=== PATIENT | female | born 1955 | race Caucasian/White ===

== ENCOUNTER 2023-04-17 06:57 | Day surgery (SDC) | payer MEDICARE, OTHER, SELFPAY ==
[2023-04-12 12:50] VITALS: BMI 32.3
[2023-04-17] VITALS (13 sets, daily range): BP systolic 104–134; BP diastolic 61–94; BMI 32.3
--- NOTE | 2023-04-17 12:37 | ITS.CL.CATH ---
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
Cardiac Catheterization
Procedure Report:
CARDIAC CATHETERIZATION REPORT
Date of Procedure: 04/17/2023
Referring: Noe Tran MD
Indication: Mitral regurgitation
HEMODYNAMIC DATA
AO: 117/64
LV: 117/17
PCWP: 19
PA: 40/20-of note, there are V waves in the PA trace
RV: 40/16
RA: 14
Oximetry: Ao 94%, PA 74%, cardiac output 6.0, cardiac index 2.9
LEFT VENTRICULOGRAPHY: Ventricular wall motion is normal. An ejection fraction could not be calculated due to ventricular ectopy. There is significant mitral regurgitation; however, the degree of mitral regurgitation cannot be quantitated due to
the ventricular ectopy. The left atrium appears significantly enlarged.
CORONARY ANGIOGRAPHY
Dominance: Right
Left Main: Normal
LAD: Normal
Circumflex: Normal
RCA: Trivial luminal irregularities
Closure Device: None-the procedure was performed via the right radial artery and right femoral vein. The Keyur's test was normal prior to the procedure.
Radiation dose (mGy): 337
DAP (cm2.Gy): 30.4
Fluoroscopy time: 4.6 minutes
CONCLUSIONS:
1. Elevated filling pressures with mild pulmonary hypertension
2. Overall normal left ventricular function-an EF could not be calculated due to ventricular ectopy
3. Mitral regurgitation cannot be quantified due to ventricular ectopy
4. No significant CAD
RECOMMENDATIONS: Patient will have outpatient cardiothoracic surgical consultation for consideration of corrective mitral valve surgery
Copy to: Noe Tran MD, More Wright MD, Allen Mcfarland MD
Boni Cardona MD, [facility], [facility]
== END 2023-04-17 15:00 | disposition home or self-care (01) ==
LOC: CATH 06:57
PROVIDERS: ATTENDING PHYSICIAN Internal Medicine Cardiovascular Disease; FAMILY PHYSICIAN Family Medicine
DX: I34.0 Nonrheumatic mitral (valve) insufficiency (principal); I27.20 Pulmonary hypertension, unspecified; I10 Essential (primary) hypertension; E78.5 Hyperlipidemia, unspecified; I48.0 Paroxysmal atrial fibrillation; Z86.73 Personal history of transient ischemic attack (TIA), and cerebral infarction without residual deficits; K21.9 Gastro-esophageal reflux disease without esophagitis; E66.9 Obesity, unspecified; Z68.32 Body mass index [BMI] 32.0-32.9, adult; Z87.891 Personal history of nicotine dependence; Z79.01 Long term (current) use of anticoagulants
CPT/HCPCS: C1894; 93312; 93320; 93325; 93460; Q9967

== ENCOUNTER → 2023-05-16 14:43 | Outpatient (REF) | payer MEDICARE, OTHER, SELFPAY | LOC: RAD 14:43 | PROVIDERS: ATTENDING PHYSICIAN Thoracic Surgery (Cardiothoracic Vascular Surgery); FAMILY PHYSICIAN Family Medicine | DX: I34.0 Nonrheumatic mitral (valve) insufficiency (principal); Z01.818 Encounter for other preprocedural examination | CPT/HCPCS: 71275; 74174; Q9967 ==

== ENCOUNTER 2023-05-30 05:03 | Inpatient (IN) | payer MEDICARE, OTHER, SELFPAY ==
[2023-05-23 08:43] VITALS: BMI 32.7
[2023-05-23 09:27] LABS: % Basophils 0.6 % (0-2); % Eosinophils 2.2 % (0-6); % Immature Granulocytes 0.3 % (0-0.5); % Lymphocytes 22.8 % (20.5-51.1); % Monocytes 13.2 % (1.7-9.3); % Neutrophils 60.9 % (42.2-75.2); Absolute Eosinophils 0.1 10^3/uL (0-0.7); Absolute Lymphocytes 1.5 10^3/uL (1.2-3.4); Absolute Monocytes 0.9 10^3/uL (0.1-0.6); Absolute Neutrophils 3.9 10^3/uL (1.4-6.5); Hematocrit 36.4 % (37.0-47.0); Mean Corpuscular Hgb 29.1 pg (27.0-31.0); Mean Corpuscular Volume 88.1 fL (81.0-99.0); Mean Platelet Volume 10.4 fL (7.4-10.4); Nucleated Red Blood Cells % 0 %; Platelet Count 221 10^3/uL (130-400); Red Blood Cell Count 4.13 10^6/uL (4.20-5.40); Red Cell Dist. Width 13.5 % (11.5-14.5); White Blood Cell Count 6.4 10^3/uL (4.8-10.8)
[2023-05-23 09:34] LABS: APTT 28.9 Sec (23.4-35.0); INR 1.04; PT 13.6 Sec (11.4-14.6)
[2023-05-23 09:39] LABS: Urine Albumin Trace (Neg - Trace); Urine Bilirubin Negative (Negative); Urine Character Clear (Clear); Urine Color Yellow; Urine Glucose Negative (Negative); Urine Ketone Negative (Negative); Urine Leukocyte Negative (Negative); Urine Nitrite Negative (Negative); Urine Occult Blood Negative (Negative); Urine Specific Gravity 1.025 (<1.030); Urine Urobilinogen Negative (Neg - 1+)
[2023-05-23 09:53] LABS: ALT (SGPT) 21 U/L (0-35); AST (SGOT) 24 U/L (14-36); Albumin 4.4 g/dl (3.5-5.0); Alkaline Phosphatase 69 U/L (38-126); Blood Urea Nitrogen 11 mg/dl (7-17); Calcium 9.4 mg/dl (8.4-10.2); Carbon Dioxide 27 mmol/L (22-30); Chloride 101 mmol/L (98-107); Estimated Creatinine Clearance 105 ml/min; Glucose 119 mg/dl (70-99); Potassium 3.9 mmol/L (3.5-5.1); Sodium 139 mmol/L (135-145); Total Bilirubin 0.6 mg/dl (0.2-1.3); Total Protein 7.5 g/dl (6.3-8.2); eGFR > 60.00
--- NOTE | 2023-05-23 10:58 | CM ---
CM met w/ patient during PATs for planned MVR, 05/29.
Patient resides in a private, 2 story home alone. There are 8 SAL; home is accessible via 8 + 8 steps to enter bedroom.
Functionally, patient is indep. w/ ADLs, mobility without the use of any assisted device.
Pt. has friends, who plan to watch after her upon DC from .
Patient has Rx plan and uses [facility] on [address] in [place].
Reviewed pre and post op routines.
Soap, shower instructions provided. (Patient has Cardiac Surgery booklet).
Discussed post op restrictions to include lifting, driving, flying.
Reviewed post op appointments, Cardiac Rehab and visit from [facility] Transitional Care RN. Pt. aware/ agreeable to this.
Plan for MVR on 05/29.
Anticipated DC plan is for home w/ [facility] Transitional Care RN.
CM to follow.
[2023-05-23 12:31] LABS: Glycohemoglobin (HgbA1c) 5.8 % (4.0-5.6)
[2023-05-30] VITALS (15 sets, daily range): BP systolic 92–138; BP diastolic 65–83; BMI 32.1
[2023-05-30] MEDS: BACTROBAN 2% OINTMENT 1 APPLIC NASAL ×2 (05:37→21:51)
[2023-05-30] MEDS: PROTONIX 40 MG PO (05:38)
[2023-05-30] MEDS: LOPRESSOR 25 MG PO (05:38)
[2023-05-30] MEDS: MAGNESIUM OXIDE 500 MG PO (05:38)
--- NOTE | 2023-05-30 06:00 | PTCARENOTE ---
Pt arrived to CVICU for SDA; pt is prepped and clipped; CHG wipes provide; new gown provided; labs drawn and sent; all admissions questions answered; home medications confirmed; pre op medications administer; pre-op check list reviewed; updated H/P
obtained by [facility]; awaiting CV[facility]
--- NOTE | 2023-05-30 06:12 | W.CVOR.SURPR ---
CVOR Surgeon Immed Pre Op
-
I have examined this patient prior to performance of the scheduled procedure.
The patient's condition is unchanged from the time of the dictated/written History and
Physical and the patient is able to undergo the scheduled procedure.
MV repair, LA MAZE, BIJAL E
[2023-05-30 08:09] LABS: ACT+ - POC 87 Seconds (82-134)
[2023-05-30 08:12] LABS: B.E. - POC -3.2 mmol/L; Glucose - POC 128 mg/dl (65-99); HCO3 - POC 23 mmol/L (21-29); Hematocrit - POC 35 % PCV (37-47); Hemodilution- POC Yes; Hemoglobin Calculated - POC 11.9; Ionized Calcium - POC 1.21 mmol/L (1.12-1.27); O2 Saturation %Calculated-POC 95.4 5 (92-96); PCO2 - POC 43 mmHg (35-45); PO2 - POC 84 mmHg (80-100); Potassium - POC 3.6 mmol/L (3.6-5.0); Sodium - POC 142 mmol/L (135-145); pH - POC 7.33 (7.35-7.45)
--- NOTE | 2023-05-30 08:55 | CM ---
Reviewed chart. Ms. Hawkins is in the operating room today. Prior to admission she resides alone in a two story home with eight steps to enter. She has 16 steps to get to bedroom/full bathroom. Prior to admission she was independent with
ambulation and adls. She does not have any DME in the home. Medical work-up in progress. The discharge plan is to undetermined at this time. .
[2023-05-30 09:09] LABS: ACT+ - POC 633 Seconds (82-134)
[2023-05-30 09:39] LABS: ACT+ - POC 497 Seconds (82-134)
[2023-05-30 09:45] LABS: B.E. - POC 5.4 mmol/L; Glucose - POC 192 mg/dl (65-99); HCO3 - POC 29 mmol/L (21-29); Hematocrit - POC 26 % PCV (37-47); Hemodilution- POC Yes; Hemoglobin Calculated - POC 8.8; PCO2 - POC 37 mmHg (35-45); PO2 - POC 377 mmHg (80-100); Potassium - POC 4.5 mmol/L (3.6-5.0); Sodium - POC 140 mmol/L (135-145)
[2023-05-30 10:22] LABS: ACT+ - POC 578 Seconds (82-134)
[2023-05-30 10:26] LABS: B.E. - POC 5.3 mmol/L; Glucose - POC 233 mg/dl (65-99); HCO3 - POC 27 mmol/L (21-29); Hematocrit - POC 29 % PCV (37-47); Hemodilution- POC Yes; Hemoglobin Calculated - POC 9.8; Ionized Calcium - POC 1.02 mmol/L (1.12-1.27); PCO2 - POC 30 mmHg (35-45); PO2 - POC 319 mmHg (80-100); Potassium - POC 4.8 mmol/L (3.6-5.0); Sodium - POC 140 mmol/L (135-145); pH - POC 7.57 (7.35-7.45)
[2023-05-30 11:15] LABS: B.E. - POC 0.4 mmol/L; Glucose - POC 192 mg/dl (65-99); HCO3 - POC 25 mmol/L (21-29); Hematocrit - POC 28 % PCV (37-47); Hemodilution- POC Yes; Hemoglobin Calculated - POC 9.5; Ionized Calcium - POC 1.03 mmol/L (1.12-1.27); O2 Saturation %Calculated-POC 99.9 5 (92-96); PCO2 - POC 37 mmHg (35-45); PO2 - POC 275 mmHg (80-100); Potassium - POC 4.1 mmol/L (3.6-5.0); Sodium - POC 143 mmol/L (135-145); pH - POC 7.43 (7.35-7.45)
[2023-05-30 11:16] LABS: ACT+ - POC 508 Seconds (82-134)
[2023-05-30 11:23] LABS: Urine Albumin Trace (Neg - Trace); Urine Bilirubin Negative (Negative); Urine Character Clear (Clear); Urine Color Yellow; Urine Glucose Negative (Negative); Urine Ketone Negative (Negative); Urine Leukocyte Negative (Negative); Urine Nitrite Negative (Negative); Urine Occult Blood Negative (Negative); Urine Urobilinogen Negative (Neg - 1+); Urine pH 6.5 (5.0-9.0)
--- NOTE | 2023-05-30 11:53 | CON.INTV ---
Consultation
Consultation Request
Date/Time Consultation Requested: 05/30/2023-12 noon
Date/Time Consultation Performed: 05/30/2023-12:30 PM
Requesting Provider: Cardiovascular surgery
Performing Provider: Dr. Sepulveda
Reason for Consultation: Postoperative critical care management
Medical History
-
Chief Complaint: Mitral valve disease
History of Present Illness:
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 Patient
was seen postoperatively in the cardiovascular intensive care unit the patient is intubated, sedated and review of systems was unobtainable. Operative records were reviewed.
Past Medical History
Past Medical History: None (Hypertension. Hyperlipidemia. Former mfgmzh-6-ucsg-year quit . CVA 2020. Gout. PAF. Mitral regurgitation. Renal calculi. Piriformis syndrome. Anxiety. Depression. Colon polyp. Diverticulosis.
Hemorrhoids. Ureteral calculi. Right ovarian cyst. Macular degeneration.)
Past Surgical History: None (Right shoulder rotator cuff 2017. Left hip replacement 2004. Right hip replacement 2005. Right lateral meniscectomy 2003. Ureteroscopy/stone extraction 05/2021.)
Social History
Tobacco: Former Smoker (5-pack-year quit )
Alcohol: Occasional
Drug: None
Living: With Family
Employment: Retired ([employer])
Occupational Exposures: No known asbestos exposures
Environmental Exposures: No known tuberculosis exposures
Family History
Family History: Other (Father car accident. Mother rheumatoid arthritis)
Allergies / Home Medications
Allergies
Allergy/AdvReac Type Severity Reaction Status Date / Time
No Known Allergies Allergy Verified 05/18/23 12:05
Home Medications
Medication Instructions Recorded Confirmed Last Taken Type
amlodipine 10 mg tablet 10 mg PO DAILY Blood pressure 30 09/06/20 05/30/23 05/27/23 08:00 Rx
days #30 tabs
apixaban 5 mg tablet (Eliquis) 5 mg PO BID 30 days #60 tabs 09/06/20 05/30/23 05/27/23 20:00 Rx
metoprolol tartrate 25 mg tablet 25 mg PO BID 30 days #60 tabs 09/06/20 05/30/23 05/29/23 20:00 Rx
escitalopram oxalate 20 mg tablet 20 mg PO HS Mental Health/Anxiety 05/19/21 05/30/23 05/29/23 20:00 History
ezetimibe 10 mg tablet 10 mg PO DAILY 04/09/23 05/30/23 05/29/23 08:00 History
rosuvastatin 40 mg tablet 40 mg PO HS 04/09/23 05/30/23 05/29/23 20:00 History
cholecalciferol (vitamin D3) 50 50 mcg PO DAILY 05/18/23 05/30/23 05/29/23 20:00 History
mcg (2,000 unit) tablet (Vitamin
D3)
Review of Systems
-
Unable to Obtain full review of systems at this time due to: Other (Per HPI)
Vitals / Labs / Diagnostic Testing
Vital Signs
Temp Pulse Resp BP Pulse Ox
97.5 F 81 14 138/83 97
05/30/23 05:36 05/30/23 05:36 05/30/23 05:36 05/30/23 05:36 05/30/23 05:36
Lab Data
05/23/23 08:53
05/23/23 08:53
Diagnostic Testing:
Physical Exam
-
Exam:
Well-nourished and well-developed in no apparent distress
HEENT-atraumatic, normocephalic, oral tracheal intubation
Heart-regular rate and rhythm-no murmurs, rubs or gallops
Chest-clear to auscultation, no wheezes, crackles, median sternotomy bandage is not removed
Abdomen soft nondistended
Extremities-no cyanosis, clubbing, edema and good peripheral pulses
Integument-intact, no rashes, lesions or ecchymosis
Neurologically not alert, not oriented, not moving any of his extremities sedated on a ventilator
Assessment
-
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
Assessment
Mitral valve insufficiency
Status post mitral valve repair, MAZE, and left atrial appendage clip-Dr. Mcfarland-05/30/2023
Mild hyperglycemia-A1c 5.8
Conditions present prior to admission:
Hypertension.
Hyperlipidemia.
Former xconjt-3-owhl-year quit .
CVA 2020.
Gout.
PAF.
Mitral regurgitation.
Renal calculi.
Piriformis syndrome.
Obesity-BMI 32
Anxiety.
Depression.
Colon polyp.
Diverticulosis.
Hemorrhoids.
Ureteral calculi.
Right ovarian cyst.
Macular degeneration.
Right shoulder rotator cuff 2017. Left hip replacement 2005. Right hip replacement 2005. Right lateral meniscectomy 2003. Ureteroscopy/stone extraction 05/2021.
Plan
Ventilator settings reviewed
FiO2 will be weaned
Minute ventilation will be adjusted
Arterial blood gases will be monitored
Spontaneous breathing trial will be attempted with hopeful extubation after anesthesia/sedation wear off
Pulmonary artery catheter parameters will be followed
Pressors/antihypertensive/inotropes/diuretics will be provided as needed
Monitor chest tube output
Monitor hemoglobin
Monitor platelet count and coags
Transfuse blood product if needed
CT surgery following chest tubes
Monitor blood sugar
Insulin drip per protocol
Aspiration precautions
VAP prevention protocol
DVT prophylaxis
Early nutrition
Early mobilization
Critical care statement: A total of 50 minutes of critical care time was provided for this patient today. This includes management of ventilator, spontaneous breathing trial, arterial blood gases, pressors, of unstable vital signs, evaluation of the
patient at bedside, reviewing the patient's pertinent medical records including radiographs, microbiology, laboratory evaluations, and discussion with primary team and critical care nursing.
Diagnostic data:
Chest x-ray 12/28/2022-NAD
CT chest abdomen and pelvis 05/16/2023-mild hepatomegaly, calcific atherosclerotic changes origin of thoracic aorta as well as small volume involving the thoracic aorta, lungs are essentially clear, trachea patent
Transesophageal echocardiogram 04/17/2023-EF 55-60%, flail leaflet P2 with severe mitral regurgitation
Cardiac catheterization 04/17/2023-elevated filling pressures with mild pulmonary hypertension, mitral regurgitation, no significant coronary artery disease, PA 40/20 and V waves and PA tracings
Data Reviewed
-
Radiology: Report reviewed by me
CT Scan: Report reviewed by me
Medical Tests (Nuc Med, Echo etc): Report reviewed by me
Labs: Labs reviewed by me
Old Records: Reviewed
Critical Care Time (in minutes): 50
[2023-05-30 12:06] LABS: ACT+ - POC 101 Seconds (82-134)
[2023-05-30 12:18] LABS: B.E. - POC -3.4 mmol/L; Glucose - POC 155 mg/dl (65-99); HCO3 - POC 22 mmol/L (21-29); Hematocrit - POC 30 % PCV (37-47); Hemodilution- POC Yes; Hemoglobin Calculated - POC 10.2; Ionized Calcium - POC 1.36 mmol/L (1.12-1.27); O2 Saturation %Calculated-POC 96.8 5 (92-96); PCO2 - POC 42 mmHg (35-45); PO2 - POC 94 mmHg (80-100); Sodium - POC 145 mmol/L (135-145); pH - POC 7.33 (7.35-7.45)
--- NOTE | 2023-05-30 12:25 | W.PN.CT.SURG ---
CT Surgery Operative Note
-
CARDIAC SURGERY OPERATIVE REPORT
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
Postoperative Diagnosis: Same
Procedure(s) Performed:
1. Right mini thoracotomy with right common femoral artery and vein cannulation under JASKARAN guidance
2. Radical mitral valve repair (30 mm band annuloplasty, [place]-Donovan cords placed to A2 and P2, triangular resection of P2 flail with imbrication of part of P2 onto P1)
3. Modified left atrial maze using cryo
4. Left atrial appendage exclusion with a 40 mm clip
5. Placement temporary ventricular pacing wires
6. Trans esophageal echocardiography
Date of Surgery: 05/30/2023
Comorbidities:
1. 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
2. Acute on chronic congestive heart failure with respiratory failure after induction from anesthesia
3. Hypertension
4. History of smoking, former
5. History of CVA/TIA
6. Hyperlipidemia
7. Paroxysmal atrial fibrillation new
8. Diverticulosis
9. Hemorrhoids
10. Morbidly obese with a BMI greater than 30
11. Degenerative disc disease
12. Multiple orthopedic surgeries
13. Gout
Attending Surgeon: Allen Mcfarland MD, MS
Assistants: Debbie Sultana PA-C (present and necessary for retraction, suctioning, exposure, suture management, wound closure, etc. under my direction)
Anesthesiology: Dakota Charles MD and Naun Gtz CRNA
Scrub and Circulating RNs: Dwight Hart, RN, Marni Corona RN
Fur Repair Inspector: Dread Gonzalez CCP
Anesthesia: GETA
EBL: per perfusion records
Products: None
CPB Time: 151 minutes
Aortic Cross Clamp Time: 118 minutes
Indication(s) for Procedures: This is a 67-year-old female who recently developed worsening shortness of breath and fatigue and also new onset atrial fibrillation with TIA in the form of word finding difficulties. She also describes frequent
episodes of soft tissue edema requiring Lasix. She met stage D symptomatology and class I indication for surgical intervention of her mitral valve. Given her elevated [id number] score of 5 and elevated risk of stroke, I plan to perform left
atrial ablation and appendage ligation. Her STS risk was discussed in the office which was acceptable and so we proceeded with surgery.
Mitral Valve Description: Thickened posterior and anterior leaflet of the mitral valve, distinct flail segment of P2 with multiple torn cords. Tall posterior leaflet, asymmetrical annular dilatation towards P2 P3. Short anterior leaflet measuring
approximately 2.7 to 2.8 cm. Coaptation to septal distance was also short at 1.9 cm.
Ablation Lines:
1. Box lesion to posterior LA wall
2. BIJAL lesion + BIJAL Exclusion
3. Coronary sinus lesion
4. Posterior mitral annular line toward P2/P3
Implants:
1. 30mm PhysioFlex Annuloplasty Band, SN [id number]
2. BIJAL Clip, AtriCure [id number], SN [id number]
3. 2 pairs of CV 4 [place]-Donovan sutures to A2 and to P2
4. Multiple 5-0 Prolene's
Specimen:
1. Posterior leaflet P2 flail
Findings: Left ventricular ejection fraction preoperatively was approximate 55%. Of note after induction of anesthesia, she developed flash pulmonary edema with significant elevated pulmonary hypertension in the 60s and poor oxygen saturation. She
was able to recover and so we decided to move forward with minimally invasive surgery. Following surgery EF was the same at 55 to 60%. There were no new regional wall motion abnormalities. Her left atrial appendage was verified to be free of
thrombus or debris preoperatively. It was found to be totally occlusive and obliterated with a 40 mm clip following surgery. Her mitral valve was repaired with a 30 mm band annuloplasty's securing it in place with 11 nonpledgeted 2 Ethibond
sutures with core knots. The P2 flail segment was resected in a triangular fashion. I initially approximated P2 to P1 in place neochordortex the P2 scallop. I also placed 1 pair of neochord to the posterior medial papillary muscle head in
anticipation of placing this onto the anterior leaflet of the mitral valve to prevent systolic anterior motion. On dynamic inflation of the left ventricle with pressurization. There seem to be a central leak at the point of triangular resection.
There was excess P2 leaflet tissue and so I imbricated P2 onto P1 to create a more smooth coaptation margin. Reevaluation of the mitral valve after dynamic inflation of the left ventricle demonstrated a competent valve with a posterior coaptation
line with a coaptation height of approximately 8 mm. Due to her small coaptation to septal distance and prominent septum, I placed a single cord onto the anterior leaflet of the mitral valve to the posterior medial papillary muscle head. After
coming off cardiopulmonary bypass, there is no residual mitral valve insufficiency, no systolic anterior motion of mitral leaflets. And a mean gradient across the valve of 4 mmHg. Her heart rate was in the 40s, sinus, and so she was placed on 3 of
dobutamine. With this running, her cardiac index was 2.7. She did not require any products and resumed her own [place] rhythm after short period of ventricular pacing.
Description of Procedure: The patient was brought to the operating room and placed supine in the table with their right side bumped up and right arm down. Arterial and central access was performed by anesthesiology. The patient was prepped from chin
to toes in the typical sterile fashion. Trans esophageal evaluation of cardiac function and all valvular structures was conducted. Before commencing, a time out was performed by all members of the team. All were in agreement with the procedure and
laterality and I proceeded. A small right groin incision was made to expose the common femoral artery and vein. A total of 50,000 units of heparin was given. A 5-6 cm right lateral thoracotomy was performed over the 4th intercostal space verified by
visualization of the hilum. The common femoral artery and vein were cannulated under transesophageal guidance using open Seldinger technique. The arterial line was verified to have an appropriate bounce and pressure correlating with testing. Once
the ACT was above 400, retrograde autologous priming was done and we commenced cardiopulmonary bypass. Target core temperature was 34�C.
Carbon dioxide was used to flood the field. The course of the phrenic nerve was identified to prevent injury. The pericardium was opened and two stay sutures were placed to facilitate a ``pericardial table.�� The oblique sinus was developed followed
by the inter atrial groove. An antegrade root vent was inserted and secured with a pursestring suture. The pump flow and mean arterial pressure were lowered and an aortic cross clamp was applied to the ascending aorta. A total of 1.2L initial dose
of Antegrade cardioplegia was delivered. We had rapid electro myocardial quiescence at 250cc of cardioplegia. The ventricle was monitored for distension by echocardiogram during this time. The left atrium was incised and enlarged. A left atrial lift
retractor was placed. The mitral valve was inspected. Left atrial maze was performed using cryo here starting initially with the coronary sinus lesion. The mitral valve was repaired as described above. I then removed the left atrial lift retractor
and gently retracted the aorta anteriorly and deployed a 40 mm clip via the transverse sinus across the left atrial appendage flush to the base. Intra-atrial inspected of the os of the left atrium verified complete exclusion. The left atriotomy
was closed with 3-0 prolene in a running fashion leaving a ventricular vent in place to de-air. After filling the heart, the vent was removed and the prolene was secured with a corknot. Unipolar ventricular pacing wire was placed on the base of the
right ventricle. The patient was placed into Trendelenburg position and pump flows were lowered. The clamp was slowly removed with the root vent turned on. De-airing maneuvers were performed. We started to rewarm with a target of 36.5�C.
As the heart recovered, the mitral valve and ventricular function were assessed under transesophageal echocardiogram. The LV vent and root vents were removed. Once weaning parameters were satisfactory, cardiopulmonary bypass flow was lowered until
we were off cardiopulmonary bypass the mitral valve was inspected again. All surgical sites were inspected for hemostasis and appeared appropriate. The lines were clamped and the arterial was relocated to the venous cannula to give back volume. A
test dose of protamine was delivered and patient was monitored for any adverse reactions followed by complete protamine dosing. The femoral vessels were decannulated and repaired as indicated. The pericardium was approximated with 2-0 ethibond
sutures secured with corknots. One 19F Lorenzo drain remained in the pleural space and one 24F lorenzo drain in the pericardium. There was an excellent palpable distal to the ASSOCIATE WEB DEVELOPER cannulation site. Local analgesia was injected to the thoracotomy. The rib
space was approximated with #2 Vicryl suture. The incision was closed in layers in a running fashion.
All instrument, sponge, and needle counts were confirmed to be correct x 2 at the end of the operation. The patient was transferred to the cardiac intensive care unit in critical but stable condition.
I, Dr. Allen Mcfarland, was present, scrubbed for, and performed all critical elements of this procedure.
Allen Mcfarland MD, MS
Cardiothoracic Surgeon
[facility]
This dictation was created using the [employer] book dictation system. Please excuse any grammatical, typographical, or 'sound alike' errors
[2023-05-30 12:47] LABS: Glucose - Point of Care 131 mg/dl (70-99)
[2023-05-30 12:54] LABS: B.E. 0.8 mmol/L; HCO3 26.6 mmol/L (21-28); Ionized Calcium 1.27 mMOL/L (1.15-1.33); O2 Saturation % 99.3 % (94-98); PCO2 47 mmHg (32-35); PO2 100 mmHg (83-108); Potassium 3.1 mMOL/L (3.5-5.1); Sodium 140 mMOL/L (136-145); pH 7.36 (7.35-7.45)
[2023-05-30 13:08] LABS: Hematocrit 28.6 % (37.0-47.0); Hemoglobin 9.6 g/dL (12.0-16.0); Platelet Count 139 10^3/uL (130-400)
[2023-05-30 13:10] LABS: INR 1.52; PT 18.4 Sec (11.4-14.6)
[2023-05-30 13:11] LABS: APTT 25.1 Sec (23.4-35.0)
[2023-05-30 13:13] LABS: Blood Urea Nitrogen 12 mg/dl (7-17); Estimated Creatinine Clearance 103 ml/min; Glucose 127 mg/dl (70-99); Magnesium 2.5 mg/dl (1.6-2.3)
[2023-05-30] MEDS: NSS 500 IV (13:23)
[2023-05-30] MEDS: KCL 50 IV ×2 (13:23→14:06)
[2023-05-30] MEDS: ALBUMIN 5% 250 IV (13:23)
[2023-05-30] MEDS: NEURONTIN PO ×2 (13:24→16:32)
[2023-05-30] MEDS: ANCEF 10 IV ×2 (13:24)
--- NOTE | 2023-05-30 13:27 | PTCARENOTE ---
Received pt from [facility]. Intubated and sedated, # 8 ETT @ 22 cm RT lip. Vent settings per anesthesia and DR Mcfarland. SIMv 60%, rate 14, tv 500 psv 5 peep 8 pulse ox 95%. RT IJ cordis with swan floated to 40 cm. Initial CI 2.57. LT radial A line
transduced. Lines leveled, recalibrated and flushed, SR with frequent PVC's . Epicardial wire set to back up of VVI 40/10. No pacing noted at this time. Dobutamine infusing at 1 mcg/kg/min. Along with insulin per glycemic protocol, and
precedex at 0.5 mcg/kg/hr. 250 ml 5% Albumin administered per Dr Mcfarland. Chest tubes x 2 to - 20 cm suction. No air leak or crepitus noted. serosanguineous drainage noted. Abdomen soft, obese, hypoactive bowel sounds Doll draining clear yellow
urine. No edema appreciated. Pulses palpable.
[2023-05-30] MEDS: CORDARONE 518 MG IV (13:51)
[2023-05-30 14:03] LABS: Glucose - Point of Care 133 mg/dl (70-99)
--- NOTE | 2023-05-30 14:03 | PTCARENOTE ---
Amiodarone infusion started at 0.5 mcg/min per Dr Mcfarland order. Unable to wean fio2 at this time lower than 60%. attempt made for 40% and pulse ox dropped to 90%
--- NOTE | 2023-05-30 14:22 | W.PN.CD ---
Today's Communication / Plan
-
Routine postoperative management.
Wean pressors.
Extubate when possible.
Impression / Plan
-
Impression/Plan: 67 y/o female with HTN, PAF on apixaban, history of CVA and symptomatic myxomatous mitral valve regurgitation admitted for elective mitral valve repair.
#Myxomatous mitral valve/Severe mitral regurgitation
-Chronic, symptomatic.
-S/P Radical mitral valve repair (#30 Physioflex Annuloplasty Band, SN [id number], 2 pairs of GoreTex chords to A2 and P2, triangular resection of P2 with imbrication of part of P2 onto P1).
-Expectant post operative management.
-Wean pressors.
-Extubate when appropriate.
#PAF
-Chronic.
-Currently in NSR.
-Rate/rhythm control with amiodarone/metoprolol.
-CHADS2-Vasc = (HTN, Age x1, CVA x2, Female).
-S/P LAAL (#40 Atriclip) and modified left atrial MAZE.
#Hypertension
-Chronic, stable.
-Monitor BP as pressors weaned.
-Re-start home antihypertensives as BP permits.
#Hx of CVA
-Chronic, stable.
-AF treatment as above.
-Secondary prevention with high dose, high potency statin.
Critical Care Time = 33 minutes.
Subjective/Interval History:
S/P MVR, LAAL, MAZE.
Hbg down to 9.6 (down from 12.0 earlier this month).
DATA:
Intraoperative JASKARAN, 05/30/2023:
CONCLUSIONS
�Severe MR, prolapsed P1 P2 juncture with flail segment.� Dilated annulus.� No
�significant MAC.
�No thrombus or mass seen in the left atrial appendage.
�Severe left atrial enlargement.
�Normal left ventricular size and systolic function.
�The aorta has atheroma less than 5 mm and minimal calcifications.
�Mild TR.� Mild PI.
�Normal right ventricular size and function.
POST OPERATIVE FINDINGS
�Status post mitral valve repair with 30 mm annuloplasty ring, and neocords.�
�The ring is well-seated, no perivalvular leak, no residual mitral
�regurgitation, no mitral stenosis, leaflets are functioning well, mean gradient
�is 4 mmHg.
�Status post left atrial appendage exclusion, no flow seen through the left
�atrial appendage remnant.
�Normal left ventricular size and systolic function, no regional wall motion
�abnormalities, EF 55 to 60%.
�Normal right ventricular size and function.
�Mild TR.� Mild PI.� No aortic valve abnormalities.
Cardiac Catheterization, 04/17/2023:
LEFT VENTRICULOGRAPHY: Ventricular wall motion is normal.� An ejection fraction could not be calculated due to ventricular ectopy.� There is significant mitral regurgitation; however, the degree of mitral regurgitation cannot be quantitated due to
the ventricular ectopy.� The left atrium appears significantly enlarged.
CORONARY ANGIOGRAPHY
Dominance: Right
Left Main: Normal
LAD: Normal
Circumflex: Normal
RCA: Trivial luminal irregularities
JASKARAN, 04/17/2023:
CONCLUSIONS
�Normal left ventricular systolic function. Left ventricular ejection fraction
�is 55-60%.
�
�Flail leaflet P2 with severe mitral regurgitation.
�
�No significant change since the prior study of Nov 2021.
Physical Exam
Vital Signs/Labs
Vital Signs
Temp Pulse Resp BP Pulse Ox
36.0 C L 85 14 113/78 95
05/30/23 14:00 05/30/23 13:56 05/30/23 13:56 05/30/23 13:00 05/30/23 14:11
05/29/23 05/30/23 05/31/23
11:59 11:59 11:59
Actual Weight 92.8 kg
05/30/23 12:44
PT 18.4 Sec (11.4-14.6) H 05/30/23 12:44
INR 1.52 05/30/23 12:44
APTT 25.1 Sec (23.4-35.0) 05/30/23 12:44
Magnesium 2.5 mg/dl (1.6-2.3) H 05/30/23 12:44
Physical Exam
Constitutional: No acute distress and Comfortable
EENT: Anicteric and Moist mucous membranes
Cardiovascular: Rhythm & rate is regular, Pedal edema is absent, JVD pressure is normal, S1S2 is normal and Murmur/rub/gallop absent
Respiratory: Respiratory effort normal, Lungs clear to auscul., Wheeze Absent, Crackles Absent and Rhonchi Absent
GI: Soft, Distention absent, Flat, Non tender and Normal bowel sounds
Data Reviewed
-
Date of Service: May 30, 2023
Medical Decision Making: Reviewed Test Results, Test Interpretation and Review of Case with other Provider
EKG: Tracing Personally Visualized and interpreted and Report Reviewed by me
Echo: Report Reviewed by me
X-Ray/CT/US/MRI/NUC/PET: Report Reviewed by me
Medical Tests (PFT, Pathology etc): Report Reviewed by me
Labs: Labs Reviewed by me
Old Records: Reviewed
[2023-05-30] MEDS: TYLENOL PO (14:24)
[2023-05-30] MEDS: DILAUDID 0.5 MG IV (14:39)
[2023-05-30 15:05] LABS: Glucose - Point of Care 139 mg/dl (70-99)
[2023-05-30 15:59] LABS: Glucose - Point of Care 158 mg/dl (70-99)
[2023-05-30] MEDS: PACERONE PO (16:32)
[2023-05-30 17:03] LABS: Glucose - Point of Care 145 mg/dl (70-99)
[2023-05-30 17:06] LABS: B.E. 1.7 mmol/L; HCO3 26.6 mmol/L (21-28); Ionized Calcium 1.19 mMOL/L (1.15-1.33); O2 Saturation % 99.1 % (94-98); PCO2 42 mmHg (32-35); PO2 87 mmHg (83-108); Potassium 4.2 mMOL/L (3.5-5.1); pH 7.41 (7.35-7.45)
[2023-05-30 17:14] LABS: Hematocrit 28.3 % (37.0-47.0); Hemoglobin 9.6 g/dL (12.0-16.0); Platelet Count 148 10^3/uL (130-400)
--- NOTE | 2023-05-30 17:16 | PTCARENOTE ---
Dobutamine weaned off as per Dr Mcfarland. CI 2.37. 4 hour HH obtained , ABG also sent at this time with lymartha. Pt becoming more arousable for longer periods of time. CPAP trial initiated at 1715. Will obtain ABG and proceed.
--- NOTE | 2023-05-30 17:35 | PTCARENOTE ---
Currently on CPAP trial, tolerating but remains drowsy. No apnea noted. Pt bathed with CHG wipes, gown applied. Turned and repositioned. When turned on to RT side HR dipped down to 40's and began pacing, BP dipped briefely but both returned to
normal with laying supine.
[2023-05-30] MEDS: ASPIRIN 300 MG RECTAL (17:40)
[2023-05-30] MEDS: TORADOL 15 MG IV ×2 (17:40→23:58)
[2023-05-30 18:02] LABS: B.E. 0.5 mmol/L; PCO2 45 mmHg (32-35); PO2 95 mmHg (83-108); pH 7.37 (7.35-7.45)
[2023-05-30] MEDS: ANCEF 5 IV (18:07)
--- NOTE | 2023-05-30 18:22 | PTCARENOTE ---
ABG reviewed. , Order obtained to extubate. Extubated to 6 L NC. pulse ox 96 %.
--- NOTE | 2023-05-30 18:26 | RESPNOTE ---
18:10 Patient extubated and placed on 6 liter nasal cannula 96%
[2023-05-30 19:22] LABS: Glucose - Point of Care 123 mg/dl (70-99)
--- NOTE | 2023-05-30 20:00 | PTCARENOTE ---
assumed care of pt from previous RN. pt A&Ox4, resting in bed at time of assessment. MAEE. R IJ cordis w/ KVO, swan floated to 40 cm. L radial a-line. all lines leveled, zeroed, flushed. NSR on tele-monitor, HR 70s. temp epicardial v-wires, w/
backup generator to 40/10/0.8. pacer on, wires unplugged at this time. CTx2 (R pleural, mediastinal) to -20cm wall suction, draining serosanguineous drainage. POX 95% on 6 L NC. lungs diminished on auscultation. abd s/n, obese, hypoactive BS.
tolerating ice chips at time of assessment. osullivan catheter draining clear, yellow urine. all surgical sites stable. PIV intact. see worklist for complete nursing assessment, interventions, VS, I&Os, and med titrations.
[2023-05-30 21:20] LABS: Glucose - Point of Care 105 mg/dl (70-99)
[2023-05-30] MEDS: SENOKOT-S 1 TABLET PO (21:51)
[2023-05-30] MEDS: LEXAPRO 20 MG PO (21:54)
[2023-05-30] MEDS: NEURONTIN 300 MG PO (21:54)
[2023-05-30] MEDS: PACERONE 200 MG PO (21:54)
[2023-05-30] MEDS: TYLENOL 1000 MG PO (21:54)
[2023-05-30] MEDS: CRESTOR 40 MG PO (21:54)
[2023-05-30] MEDS: ROXICODONE 5 MG PO (22:04)
[2023-05-30] MEDS: DILAUDID 0.25 MG IV (23:04)
[2023-05-30 23:11] LABS: Glucose - Point of Care 127 mg/dl (70-99)
[2023-05-31] VITALS (21 sets, daily range): BP systolic 91–140; BP diastolic 62–85; BMI 33.1
--- NOTE | 2023-05-31 | PTCARENOTE ---
pt reassessed. VSS. NSR on tele-monitor. HR 80s. pt requiring 6 L NC to maintain POX 91-92%. CT PA aware. amio, nitro, dobutamine, and insulin gtts infusing. see worklist for titrations. CT drainage WNL. U/O <0.5ml/kg/h. CT PA aware.
[2023-05-31 00:32] LABS: B.E. 0.3 mmol/L; HCO3 25.4 mmol/L (21-28); Ionized Calcium 1.21 mMOL/L (1.15-1.33); PCO2 42 mmHg (32-35); PO2 68 mmHg (83-108); pH 7.39 (7.35-7.45)
[2023-05-31 00:33] LABS: O2 Therapy 7L O2
[2023-05-31 01:02] LABS: Glucose - Point of Care 114 mg/dl (70-99)
[2023-05-31] MEDS: ANCEF 5 IV ×2 (03:02→11:29)
[2023-05-31 03:12] LABS: Glucose - Point of Care 118 mg/dl (70-99)
[2023-05-31 03:19] LABS: Hematocrit 27.4 % (37.0-47.0); Hemoglobin 9.3 g/dL (12.0-16.0); Mean Corp Hgb Conc. 33.9 g/dL (33.0-37.0); Mean Corpuscular Hgb 29.5 pg (27.0-31.0); Mean Platelet Volume 10.2 fL (7.4-10.4); Platelet Count 154 10^3/uL (130-400); Red Blood Cell Count 3.15 10^6/uL (4.20-5.40); Red Cell Dist. Width 14.1 % (11.5-14.5)
[2023-05-31 03:49] LABS: Blood Urea Nitrogen 15 mg/dl (7-17); Calcium 8.4 mg/dl (8.4-10.2); Carbon Dioxide 23 mmol/L (22-30); Chloride 112 mmol/L (98-107); Estimated Creatinine Clearance 103 ml/min; Glucose 118 mg/dl (70-99); Magnesium 2.3 mg/dl (1.6-2.3); Potassium 3.9 mmol/L (3.5-5.1); Sodium 139 mmol/L (135-145); eGFR > 60.00
--- NOTE | 2023-05-31 04:00 | PTCARENOTE ---
assessment remains unchanged. VSS. NSR on tele-monitor. HR 70s-80s. POX 91-92% on 6 L NC. pain management, see MAR. AM labs collected. K+ repleted. AM EKG completed. pt washed w/ CHG. AM plan discussed, pt in agreement.
[2023-05-31] MEDS: KCL 40 MEQ PO (04:29)
[2023-05-31] MEDS: ROXICODONE 5 MG PO ×3 (04:37→14:12)
[2023-05-31 05:07] LABS: Glucose - Point of Care 100 mg/dl (70-99)
--- NOTE | 2023-05-31 05:12 | W.PN.CT ---
Addendum entered and electronically signed by SARAH Santizo 05/31/23 14:39:
CDI inquiry:
#acute respiratory failure with hypoxia
Original Note:
Today's Communication / Plan
-
-pod #1
-no major issues overnight. Required 7L O2 for pulmonary insufficiency (750 cc on IS, ABG reviewed), possible splinting
-got iv Dilaudid, Oxi, Toradol, Tylenol, Gabapentin for pain
-no further bradycardia
-CI 2.21, CO 4.50. Drips: Amio 0.5 and Insulin. Dobut was restarted at 10 pm and weaned off at 3 am (CI 2.77)
-CT output: med 155/230, R pleural 60/130 in 12/24 hrs
-deline
-d/c insulin
-d/c Doll
-current meds (ASA, Lopressor, Amio, Crestor, Tylenol, Toradol, Lidocaine patch, Lexapro). On Eliquis preop for paf
-monitor Qt on Lexpro and Amio
-encourage IS, OOB
Assessment / Plan
-
Impression:
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
Mcfarland on 05/30/23, pod #1
-after induction of anesthesia, pt developed flash pulmonary edema with significant elevated pulmonary hypertension in the 60s and poor oxygen saturation.� She was able to recover
-Intraop JASKARAN: postop EF was the same at 55 to 60%.� There were no new regional wma.� Her left atrial appendage was verified to be free of thrombus or debris preoperatively.� It� was found to
be totally occlusive and obliterated with a 40 mm clip following surgery.�There was no residual mitral valve insufficiency, no RICARDO of mitral leaflets and a mean gradient across the valve of 4
mmHg.�
-intraop joanne 40s - started on Dobutamine - resolved
- Acute on chronic diastolic congestive heart failure with respiratory failure after induction from anesthesia
- EF 55-60%
- Hypertension
- History of smoking, former
- History of CVA/TIA with word finding difficulty
- Hyperlipidemia
- Paroxysmal atrial fibrillation of recnet onset- on Eliquis preop
- Diverticulosis
- Hemorrhoids
- Class 1 obesity (BMI 32)
- Degenerative disc disease
- Multiple orthopedic surgeries
- Gout
- Acute postop blood loss anemia - no active bleed, no transfusion
- Acute postop pulmonary insufficiency/atelectasis
- Acute postop hypovolemia with subsequent hypervolemia
- Acute postop abnormal ECG, possible pericarditis
Discussed patient care with: Nursing and Care Team
Subjective
-
Date of Service: May 31, 2023
Objective Data
-
PT 18.4 Sec (11.4-14.6) H 05/30/23 12:44
INR 1.52 05/30/23 12:44
APTT 25.1 Sec (23.4-35.0) 05/30/23 12:44
Vital Signs
Vital Signs
Temp Pulse Resp BP Pulse Ox
98.2 F 85 12 96/62 92
05/31/23 01:00 05/31/23 01:07 05/31/23 01:07 05/31/23 01:00 05/31/23 01:07
CT Intake/Output/Weight
05/30/23 05/30/23 05/31/23
06:59 18:59 06:59
Intake Total 463.6 / 867.7 404.1 / 867.7
Output Total 650 / 965 315 / 965
Balance -186.4 / -97.3 89.1 / -97.3
SaO2: 92
Physical Exam
-
General: Awake and AOx3
Cardiovascular: Regular rate & rhythm, No Murmurs and No Rub
Respiratory: Decreased Breath Sounds
Sternum: Stable
Incision: Clean, Dry and Dressing Intact
Extremities: Other (trace edema, 2+ DP b/l)
Abdomen: soft, nontender, nondistended, + decreased bowel sounds
Data Reviewed
-
Lab Results: Results Reviewed
Medications: Active Meds Reviewed
Chest X-Ray: Report Reviewed and Image Reviewed
ECG: Report Reviewed and Image Reviewed
[2023-05-31] MEDS: TYLENOL 1000 MG PO ×3 (05:50→21:14)
[2023-05-31] MEDS: FLEXERIL 5 MG PO ×2 (06:16→14:50)
[2023-05-31 07:01] LABS: Glucose - Point of Care 119 mg/dl (70-99)
[2023-05-31] MEDS: TORADOL 15 MG IV (07:11)
[2023-05-31] MEDS: LASIX 40 MG IV (07:20)
--- NOTE | 2023-05-31 07:30 | PTCARENOTE ---
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 NSR via cm, SaO2 @ 96% on midflow 15L. RIJ Cordis/Sanger-Latisha catheter, L radial arterial lines present - leveled, flushed, and
calibrated w/good waveforms returned. Epicardial V-wire present. R pleural, mediastinal chest tubes to individual pleurevac chambers, to -20cm suction, no air leaks appreciated. Doll catheter to gravity. All procedural sites stable. Amiodarone,
insulin, NTG infusing - see work list interventions for infusion rates and titrations. Patient updated to plan of care for the day, in agreement. See work list for full assessment and interventions performed.
[2023-05-31] MEDS: DILAUDID 0.25 MG IV (07:34)
--- NOTE | 2023-05-31 07:36 | W.PN.INTV ---
Today's Communication / Plan
Recommendations
Tolerated extubation
Wean FiO2
Increase activity
deline
Insulin drip will be discontinued-likely transfer to telemetry-call pulmonary if respiratory issues arise
Assessment
-
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
Assessment
Mitral valve insufficiency
Status post mitral valve repair, MAZE, and left atrial appendage clip-Dr. Mcfarland-05/30/2023
Mild hyperglycemia-A1c 5.8
Conditions present prior to admission:
Hypertension.
Hyperlipidemia.
Former paqzqr-0-ythr-year quit .
CVA 2020.
Gout.
PAF.
Mitral regurgitation.
Renal calculi.
Piriformis syndrome.
Obesity-BMI 32
Anxiety.
Depression.
Colon polyp.
Diverticulosis.
Hemorrhoids.
Ureteral calculi.
Right ovarian cyst.
Macular degeneration.
Right shoulder rotator cuff 2017. Left hip replacement 2004. Right hip replacement 2005. Right lateral meniscectomy 2003. Ureteroscopy/stone extraction 05/2021.
Plan
Tolerated extubation
Wean FiO2
Encourage incentive spirometry
Increase activity
Aspiration precautions
Pulmonary artery catheter and arterial line will be removed
Still on low-dose dobutamine
Pressors have been weaned
Lasix 40 mg IV provided-good urine output
Monitor renal function, electrolytes, intake/output, lower extremity edema and weight
Replace electrolytes as needed
Continue to monitor chest tube output
Follow hemoglobin
Continue to follow platelet count and coags
Transfuse blood product as needed
CT surgery following chest tubes as well
Follow blood sugar
Insulin supplementation continues as needed
Early nutrition
Early mobilization
DVT prophylaxis
Patient will be transferred to telemetry phase-call pulmonary if respiratory issues arise
Reviewed the patient's pertinent medical records including radiographs, microbiology, laboratory evaluations, and discussion with primary team, and critical care nursing.
Diagnostic data:
Chest x-ray 12/28/2022-NAD
CT chest abdomen and pelvis 05/16/2023-mild hepatomegaly, calcific atherosclerotic changes origin of thoracic aorta as well as small volume involving the thoracic aorta, lungs are essentially clear, trachea patent
Transesophageal echocardiogram 04/17/2023-EF 55-60%, flail leaflet P2 with severe mitral regurgitation
Cardiac catheterization 04/17/2023-elevated filling pressures with mild pulmonary hypertension, mitral regurgitation, no significant coronary artery disease, PA 40/20 and V waves and PA tracings
Subjective Dataa
Subjective Data
Date of Service:
Date of Service: May 31, 2023
Chief Complaint: Finishing Manager Follow Up, Pulmonary Follow Up and Vent Management Follow Up
Subjective:
Tolerated extubation, still on some dobutamine, pain controlled, still on high FiO2 oxygen, responding to Lasix, no abdominal pain
Review of Systems
General: Other (Per HPI)
Objective Data
Data Reviewed
Vital Signs / I&O / Oxygen:
Vital Signs
Temp Pulse Resp BP Pulse Ox
98.4 F 78 14 148/76 96
05/31/23 07:00 05/31/23 07:20 05/31/23 07:15 05/31/23 07:20 05/31/23 07:15
Intake and Output
05/30/23 05/31/23 06/01/23
06:59 06:59 06:59
Intake Total 1099.5 / 1141.5 42.0 / 42.0
Output Total 1195 / 1235 40 / 40
Balance -95.5 / -93.5 2.0 / 2.0
SaO2 [SIMV] 94
SaO2 96
Nasal Cannula flow liters per 7
minute
Physical Exam
General: Respiratory Distress (n) and Comfortable
HEENT: Normocephalic, Anicteric and Moist Mucous Membranes
Cardiovascular: Regular Rhythm
Respiratory: Wheeze (n), Crackles, Rhonchi (n), Non-Labored Respirations, Accessory Resp Muscle Use (n) and Chest Tube
GI: Soft, Non Distended and Non Tender
Neurology: Awake, Alert and No Motor Deficits
Skin: Warm, Good Color, Cyanosis (n) and Jaundice (n)
Labs/Micro/Reports
Lab Data
05/31/23 03:09
05/31/23 03:09
Laboratory Results
05/30/23 05/30/23 05/30/23
12:44 16:58 17:55
PT 18.4 H
INR 1.52
APTT 25.1
pH 7.36 7.41 7.37
pCO2 47 H 42 H 45 H
pO2 100 87 95
HCO3 26.6 26.6 26.0
O2 Delivery Level
05/31/23
00:24
PT
INR
APTT
pH 7.39
pCO2 42 H
pO2 68 L
HCO3 25.4
O2 Delivery Level 7l o2
--- NOTE | 2023-05-31 07:53 | W.PN.ANS.POP ---
Anesthesia Post Operative
- Anesthesia Post Op Note
Vital Signs Stable-See Nursing Note: Yes
Airway Patent: Yes (O2 via NC)
Adequate Pain Control: Yes
Change in Mental Status: No
Current Postoperative Nausea & Vomiting: No
Anesthesia Complications: No
General Anesthetic Recall: No
Unplanned Admission: No
Post Op Hydration Adequate: Yes (tolerating PO)
[2023-05-31] MEDS: SENOKOT-S 1 TABLET PO ×2 (08:47→20:00)
[2023-05-31] MEDS: PROTONIX 40 MG PO (08:47)
[2023-05-31] MEDS: BACTROBAN 2% OINTMENT 1 APPLIC NASAL ×2 (08:47→20:00)
[2023-05-31] MEDS: LOPRESSOR 12.5 MG PO ×2 (08:47→20:10)
[2023-05-31] MEDS: LOW STRENGTH ASPIRIN 81 MG PO (08:48)
[2023-05-31] MEDS: NEURONTIN 300 MG PO ×3 (08:48→21:14)
[2023-05-31] MEDS: MAGNESIUM OXIDE 500 MG PO ×2 (08:48→20:00)
[2023-05-31] MEDS: PACERONE 200 MG PO ×3 (08:48→21:14)
[2023-05-31] MEDS: LIDOCAINE 4% PATCH 1 PATCH TOPICAL (08:49)
[2023-05-31 08:57] LABS: Glucose - Point of Care 117 mg/dl (70-99)
[2023-05-31 11:03] LABS: Glucose - Point of Care 99 mg/dl (70-99)
[2023-05-31] MEDS: NSS IV (11:21)
--- NOTE | 2023-05-31 12:40 | PTCARENOTE ---
VS obtained, assessment stable. Patient resting comfortably oob in chair, having lunch.
[2023-05-31 13:17] LABS: Glucose - Point of Care 141 mg/dl (70-99)
[2023-05-31 13:59] LABS: Blood Urea Nitrogen 17 mg/dl (7-17); Calcium 8.3 mg/dl (8.4-10.2); Carbon Dioxide 23 mmol/L (22-30); Chloride 101 mmol/L (98-107); Estimated Creatinine Clearance 90 ml/min; Glucose 138 mg/dl (70-99); Magnesium 2.2 mg/dl (1.6-2.3); Potassium 5.2 mmol/L (3.5-5.1); Sodium 131 mmol/L (135-145); eGFR > 60.00
--- NOTE | 2023-05-31 14:26 | PN.CDI ---
CDI
- -
CDI:
Physician Documentation Request
Admit Date: 05/30/23 05:[address] Surgery,
Please review the following and provide your response in the progress notes.
Clinical Indicators:
- 05/30 CT Surgery note 'respiratory failure after induction from anesthesia'
Please clarify the type and acuity of respiratory failure:
Type Acuity
Respiratory failure with hypoxia Acute
Respiratory failure with hypercapnia Chronic
Respiratory failure with hypoxia and hypercapnia Acute on Chronic
Other, please specify
Use of terms such as suspected, likely, concern for, or probable (associated with a specific diagnosis that is being evaluated, monitored, or treated as if it exists) are acceptable and can be coded in the inpatient setting, when documented at the
time of discharge.
Thank you,
Kaylan Perez RN
CDI Specialist
Please use your independent medical judgment in providing your response.
[2023-05-31] MEDS: BUMEX 2 MG IV (14:45)
--- NOTE | 2023-05-31 16:25 | PTCARENOTE ---
VS obtained, assessment stable. R pleural chest tube drainage evaluated by LUCÍA Hunt, w/resultant removal. Patient tolerated well.
--- NOTE | 2023-05-31 20:00 | PTCARENOTE ---
assumed care of pt from previous RN. A&Ox4, pt resting in chair at time of assessment. NSR on tele-monitor, HR 80s. temp epicardial v-wires insulated. palpable pulses. trace edema in b/l ankles and hands. mediastinal CT to -20cm wall suction,
draining serosanguineous drainage. lungs diminished in the bases. POX 93-94% on 4 L NC. abd s/n, +BS. no c/o N/V. osullivan catheter maintained, draining clear, yellow urine. all surgical sites stable. R IJ cordis w/ KVO. PIV intact. see worklist for
complete nursing assessment, interventions, VS, and I&Os.
[2023-05-31] MEDS: CRESTOR 40 MG PO (21:14)
[2023-05-31] MEDS: LEXAPRO 20 MG PO (21:14)
[2023-06-01] VITALS (13 sets, daily range): BP systolic 102–135; BP diastolic 72–85; PULSE 92; O2SAT 94; BMI 33.1
[2023-06-01] MEDS: ROXICODONE 5 MG PO (00:03)
--- NOTE | 2023-06-01 00:15 | PTCARENOTE ---
assessment remains unchanged. VSS. CT drainage WNL. U/O adequate. NSR on tele-monitor. HR 80s. POX 93% on 3 L NC. pain management, see MAR. osullivan catheter removed per order POD #2. pt DTV at 0615. pt aware of plan, pt in agreement.
--- NOTE | 2023-06-01 04:15 | PTCARENOTE ---
pt reassessed. VSS. NSR on tele-monitor, HR 80s. POX 91-92% on 4 L NC. AM labs collected and sent. no c/o pain at this time.
[2023-06-01 04:57] LABS: Hematocrit 30.6 % (37.0-47.0); Hemoglobin 9.7 g/dL (12.0-16.0); Mean Corp Hgb Conc. 31.7 g/dL (33.0-37.0); Mean Corpuscular Volume 91.3 fL (81.0-99.0); Mean Platelet Volume 10.5 fL (7.4-10.4); Platelet Count 186 10^3/uL (130-400); Red Blood Cell Count 3.35 10^6/uL (4.20-5.40); White Blood Cell Count 15.5 10^3/uL (4.8-10.8)
[2023-06-01 05:18] LABS: Blood Urea Nitrogen 20 mg/dl (7-17); Glucose 128 mg/dl (70-99)
[2023-06-01 05:19] LABS: Calcium 8.5 mg/dl (8.4-10.2); Carbon Dioxide 27 mmol/L (22-30); Chloride 99 mmol/L (98-107); Estimated Creatinine Clearance 105 ml/min; Magnesium 2.3 mg/dl (1.6-2.3); Potassium 4.9 mmol/L (3.5-5.1); Sodium 129 mmol/L (135-145); eGFR > 60.00
--- NOTE | 2023-06-01 05:30 | W.PN.CT ---
Today's Communication / Plan
-
-pod#2
-doing well, no issues overnight
-med CT 100/270 in 12/24 hrs
-diuresed well with Lasix and Bumex on 05/30 (UO 1890)- continue
-Doll dcd at midnight
-Na 129 (131 on 05/30) - on 1200cc fluid restriction
-current meds (ASA, Amio, Crestor, Lasix, Lopressor)
-encourage IS /acapella, OOB
Assessment / Plan
-
Impression:
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
Mcfarland on 05/30/23, pod #2
-after induction of anesthesia, pt developed flash pulmonary edema with significant elevated pulmonary hypertension in the 60s and poor oxygen saturation.� She was able to recover
-Intraop JASKARAN: postop EF was the same at 55 to 60%.� There were no new regional wma.� Her left atrial appendage was verified to be free of thrombus or debris preoperatively.� It� was found to
be totally occlusive and obliterated with a 40 mm clip following surgery.�There was no residual mitral valve insufficiency, no RICARDO of mitral leaflets and a mean gradient across the valve of 4
mmHg.�
-intraop joanne 40s - started on Dobutamine - resolved
- Acute on chronic diastolic congestive heart failure with respiratory failure after induction from anesthesia
- EF 55-60%
- Hypertension
- History of smoking, former
- History of CVA/TIA with word finding difficulty
- Hyperlipidemia
- Paroxysmal atrial fibrillation of recnet onset- on Eliquis preop
- Diverticulosis
- Hemorrhoids
- Class 1 obesity (BMI 32)
- Degenerative disc disease
- Multiple orthopedic surgeries
- Gout
- Acute postop blood loss anemia - no active bleed, no transfusion
- Acute postop pulmonary insufficiency with hypoxia /atelectasis
- Acute postop hypovolemia with subsequent hypervolemia
- Acute postop abnormal ECG, possible pericarditis
- Acute postop hyponatremia- fluid restriction
Discussed patient care with: Nursing and Care Team
Subjective
-
Date of Service: June 01, 2023
Objective Data
-
PT 18.4 Sec (11.4-14.6) H 05/30/23 12:44
INR 1.52 05/30/23 12:44
APTT 25.1 Sec (23.4-35.0) 05/30/23 12:44
Vital Signs
Vital Signs
Temp Pulse Resp BP Pulse Ox
98.2 F 83 16 131/80 93
06/01/23 00:00 06/01/23 02:30 06/01/23 00:00 05/31/23 23:57 06/01/23 00:00
CT Intake/Output/Weight
05/31/23 05/31/23 06/01/23
06:59 18:59 06:59
Intake Total 635.9 / 1141.5 780.8 / 840.8 60 / 840.8
Output Total 545 / 1235 2120 / 2575 455 / 2575
Balance 90.9 / -93.5 -1339.2 / -1734.2 -395 / -1734.2
SaO2: 93
Physical Exam
-
General: Awake and AOx3
Cardiovascular: Regular rate & rhythm, No Murmurs and Rub
Respiratory: Rales (R base) and Decreased Breath Sounds
Sternum: Stable
Incision: Clean, Dry and Dressing Intact
Extremities: Other (trace edema b/l)
Data Reviewed
-
Lab Results: Results Reviewed
Medications: Active Meds Reviewed
Chest X-Ray: Report Reviewed and Image Reviewed
ECG: Report Reviewed and Image Reviewed
[2023-06-01] MEDS: TYLENOL 1000 MG PO ×3 (05:46→22:46)
[2023-06-01] MEDS: TORADOL 15 MG IV (06:26)
--- NOTE | 2023-06-01 07:27 | W.PN.CD ---
Today's Communication / Plan
-
Increase furosemide to 80 mg daily.
Monitor UOP, Na and renal function.
Impression / Plan
-
Impression/Plan: 67 y/o female with HTN, PAF on apixaban, history of CVA and symptomatic myxomatous mitral valve regurgitation admitted for elective mitral valve repair.
#Mitral valve regurgitation
-S/P Radical mitral valve repair (#30 Physioflex Annuloplasty Band, SN [id number], 2 pairs of GoreTex chords to A2 and P2, triangular resection of P2 with imbrication of part of P2 onto P1).
-[place] d/c'ed yesterday.
-Increase furosemide to 80 mg daily and monitor UOP.
-Ambulate.
-Incentive spirometry.
#PAF
-Chronic.
-Currently in NSR.
-Rate/rhythm control with amiodarone/metoprolol.
-CHADS2-Vasc = 5 (HTN, Age x1, CVA x2, HF,Female).
-S/P LAAL (#40 Atriclip) and modified left atrial MAZE.
-Resume anticoagulation when stable post op.
#Post op anemia
-Monitor.
#Hypertension
-Chronic, stable.
#Hx of CVA
-Chronic, stable.
-AF treatment as above.
-Secondary prevention with high dose, high potency statin.
Subjective/Interval History:
Weight up 1 kg from yesterday.
DATA:
Intraoperative JASKARAN, 05/30/2023:
CONCLUSIONS
�Severe MR, prolapsed P1 P2 juncture with flail segment.� Dilated annulus.� No
�significant MAC.
�No thrombus or mass seen in the left atrial appendage.
�Severe left atrial enlargement.
�Normal left ventricular size and systolic function.
�The aorta has atheroma less than 5 mm and minimal calcifications.
�Mild TR.� Mild PI.
�Normal right ventricular size and function.
POST OPERATIVE FINDINGS
�Status post mitral valve repair with 30 mm annuloplasty ring, and neocords.�
�The ring is well-seated, no perivalvular leak, no residual mitral
�regurgitation, no mitral stenosis, leaflets are functioning well, mean gradient
�is 4 mmHg.
�Status post left atrial appendage exclusion, no flow seen through the left
�atrial appendage remnant.
�Normal left ventricular size and systolic function, no regional wall motion
�abnormalities, EF 55 to 60%.
�Normal right ventricular size and function.
�Mild TR.� Mild PI.� No aortic valve abnormalities.
Cardiac Catheterization, 04/17/2023:
LEFT VENTRICULOGRAPHY: Ventricular wall motion is normal.� An ejection fraction could not be calculated due to ventricular ectopy.� There is significant mitral regurgitation; however, the degree of mitral regurgitation cannot be quantitated due to
the ventricular ectopy.� The left atrium appears significantly enlarged.
CORONARY ANGIOGRAPHY
Dominance: Right
Left Main: Normal
LAD: Normal
Circumflex: Normal
RCA: Trivial luminal irregularities
JASKARAN, 04/17/2023:
CONCLUSIONS
�Normal left ventricular systolic function. Left ventricular ejection fraction
�is 55-60%.
�
�Flail leaflet P2 with severe mitral regurgitation.
�
�No significant change since the prior study of Nov 2021.
Physical Exam
Vital Signs/Labs
Vital Signs
Temp Pulse Resp BP Pulse Ox
36.9 C 84 18 135/85 92
06/01/23 04:00 06/01/23 07:00 06/01/23 04:00 06/01/23 03:33 06/01/23 07:00
05/30/23 05/31/23 06/01/23
11:59 11:59 11:59
Actual Weight 92.8 kg 95.7 kg 95.8 kg
06/01/23 04:23
06/01/23 04:23
PT 18.4 Sec (11.4-14.6) H 05/30/23 12:44
INR 1.52 05/30/23 12:44
APTT 25.1 Sec (23.4-35.0) 05/30/23 12:44
Magnesium 2.3 mg/dl (1.6-2.3) 06/01/23 04:23
Physical Exam
Constitutional: No acute distress and Comfortable
EENT: Anicteric and Moist mucous membranes
Cardiovascular: Rhythm & rate is regular, Pedal edema is absent, JVD pressure is normal, S1S2 is normal and Murmur/rub/gallop absent
Respiratory: Respiratory effort normal, Lungs clear to auscul., Wheeze Absent, Crackles Absent and Rhonchi Absent
GI: Soft, Distention absent, Flat, Non tender and Normal bowel sounds
Neuro/Psych: AO x 3
Data Reviewed
-
Date of Service: June 01, 2023
Medical Decision Making: Reviewed Test Results, Independent Historian Assessment and Test Interpretation
EKG: Tracing Personally Visualized and interpreted and Report Reviewed by me
Echo: Tracing Personally Visualized and interpreted and Report Reviewed by me
X-Ray/CT/US/MRI/NUC/PET: Image Personally Visualized and interpreted and Report Reviewed by me
Labs: Labs Reviewed by me
Old Records: Reviewed
[2023-06-01] MEDS: BUMEX 2 MG IV ×3 (07:59→16:12)
[2023-06-01] MEDS: LIDOCAINE 4% PATCH 1 PATCH TOPICAL (07:59)
[2023-06-01] MEDS: LOPRESSOR 12.5 MG PO ×2 (08:00→13:48)
[2023-06-01] MEDS: SENOKOT-S 1 TABLET PO ×2 (08:00→20:11)
[2023-06-01] MEDS: MAGNESIUM OXIDE 500 MG PO ×2 (08:00→20:11)
[2023-06-01] MEDS: LOW STRENGTH ASPIRIN 81 MG PO (08:00)
[2023-06-01] MEDS: NEURONTIN 300 MG PO ×3 (08:00→22:45)
[2023-06-01] MEDS: PACERONE 200 MG PO ×3 (08:00→22:46)
[2023-06-01] MEDS: PROTONIX 40 MG PO (08:00)
[2023-06-01] MEDS: BACTROBAN 2% OINTMENT 1 APPLIC NASAL ×2 (08:08→20:10)
--- NOTE | 2023-06-01 09:24 | PTCARENOTE ---
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 NSR via cm, SaO2 @ 94% on 4lnc. RIJ Cordis w/kvo infusing. Mediastinal chest tube to -20cm suction, no air leak or crepitus noted. Epicardial
V-wire insulated to chest wall. All procedural sites stable. Patient updated to plan of care for the day, in agreement. See work list for full assessment and interventions performed.
--- NOTE | 2023-06-01 09:44 | CM ---
Reviewed chart. Met with Miss Montemayor to review discharge plans. She states she is feeling better today. She states prior to admission she resides alone in a two story condo with about six steps to enter. She states she has seven steps to get
to the main living area and then fourteen steps to get to bedroom/full bathroom. She states prior to admission she was independent with ambulation and adls. She states she does not have any DME in the home. She states she has a prescription plan
and uses [facility]. She states her good friend will be staying with her for a few days when she goes home. Addi also states she has friens in the area that will check in on her. We reviewed a home visit by the Cardiothoracic Transitional Care
Nurse. She is agreeable to the home visit. Medical work-up in progress. The discharge plan is to return home with her friend staying with her a few days, other friends check in on her and a home visit by the Cardiothoracic Transitional Care Nurse
when medically stable.
--- NOTE | 2023-06-01 11:50 | PTCARENOTE ---
VS obtained, assessment unchanged. Patient resting oob in chair, perusing menu, states pain controlled.
[2023-06-01] MEDS: NSS 500 IV (12:30)
[2023-06-01] MEDS: FLEXERIL 5 MG PO (13:48)
[2023-06-01 15:16] LABS: Blood Urea Nitrogen 26 mg/dl (7-17); Calcium 8.6 mg/dl (8.4-10.2); Carbon Dioxide 29 mmol/L (22-30); Chloride 95 mmol/L (98-107); Estimated Creatinine Clearance 90 ml/min; Glucose 145 mg/dl (70-99); Potassium 3.7 mmol/L (3.5-5.1); Sodium 133 mmol/L (135-145); eGFR > 60.00
--- NOTE | 2023-06-01 16:06 | PTCARENOTE ---
VS obtained, assessment stable and unchanged. Nasal cannula weaned to 2L. Cordis kinked, d/c'd. Mediastinal chest tube d/c'd as ordered. Patient tolerated well. resting comfortably.
[2023-06-01] MEDS: KCL 20 MEQ PO (16:12)
[2023-06-01] MEDS: LOPRESSOR 25 MG PO (20:10)
--- NOTE | 2023-06-01 20:30 | PTCARENOTE ---
Patient received OOB in chair reading book. Patient A+A+Ox3. No neurological deficits noted. No c/o pain or discomfort. Patient assisted to standing position. Patient used rolling walker by self to bathroom without assistance. Steady gait.
Patient voided 200 ml pale yellow, clear urine. No BM. Patient back to chair. No s/s of respiratory distress. O2 at 2L via NC while in chair. SaO2 97%. No c/o SOB. Chest tube dressing intact. Sinus Tachycardia. Occasional PVC. Heart rate
100's. V-Wire insulated. Patient with no c/o chest pain, pressure or discomfort. Puncture sites and incisions to right axillary and right anterior/right lateral chest intact - Surgical adhesive. Normoactive bowel sounds. No BM. Positive
flatus. No c/o nausea. No vomiting. Positive, palpable pulses. Trace generalized edema. Patient with no c/o back or flank pain. Assessment as documented.
[2023-06-01] MEDS: LEXAPRO 20 MG PO (22:46)
[2023-06-01] MEDS: CRESTOR 40 MG PO (22:46)
[2023-06-02] VITALS (14 sets, daily range): BP systolic 104–141; BP diastolic 48–85; PULSE 94; BMI 32.6
--- NOTE | 2023-06-02 | PTCARENOTE ---
Patient sleeping without difficulty. No further changes from previous assessment.
[2023-06-02 04:41] LABS: Hematocrit 29.3 % (37.0-47.0); Hemoglobin 9.6 g/dL (12.0-16.0); Mean Corp Hgb Conc. 32.8 g/dL (33.0-37.0); Mean Corpuscular Hgb 28.8 pg (27.0-31.0); Mean Platelet Volume 10.1 fL (7.4-10.4); Platelet Count 166 10^3/uL (130-400); Red Blood Cell Count 3.33 10^6/uL (4.20-5.40); Red Cell Dist. Width 13.5 % (11.5-14.5); White Blood Cell Count 10.7 10^3/uL (4.8-10.8)
--- NOTE | 2023-06-02 05:00 | PTCARENOTE ---
AM lab work collected and sent. Patient to bathroom. Voided 300 ml. Brushed teeth and washed face. Linens changed. Standing scale weight 94.3 kg. Patient back to bed. Assessment/Interventions as documented.
[2023-06-02 05:01] LABS: Blood Urea Nitrogen 23 mg/dl (7-17); Calcium 8.3 mg/dl (8.4-10.2); Carbon Dioxide 32 mmol/L (22-30); Chloride 98 mmol/L (98-107); Estimated Creatinine Clearance 105 ml/min; Glucose 108 mg/dl (70-99); Magnesium 2.3 mg/dl (1.6-2.3); Potassium 3.6 mmol/L (3.5-5.1); Sodium 133 mmol/L (135-145); eGFR > 60.00
--- NOTE | 2023-06-02 05:22 | W.PN.CT ---
Today's Communication / Plan
-
-pod#3
-looks and feels better overall
-diuresed with 2 mg iv Bumex tid on 05/31 (UO 800/3600)
-follow Na- 133
-wean off O2 as tolerated - pOx 94% on 2L
-current meds (ASA, Amio, Crestor, Bumex, Lopressor)
-encourage IS /acapella, OOB, ambulate
Assessment / Plan
-
Impression:
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
Mcfarland on 05/30/23, pod #3
-after induction of anesthesia, pt developed flash pulmonary edema with significant elevated pulmonary hypertension in the 60s and poor oxygen saturation.� She was able to recover
-Intraop JASKARAN: postop EF was the same at 55 to 60%.� There were no new regional wma.� Her left atrial appendage was verified to be free of thrombus or debris preoperatively.� It� was found to
be totally occlusive and obliterated with a 40 mm clip following surgery.�There was no residual mitral valve insufficiency, no RICARDO of mitral leaflets and a mean gradient across the valve of 4
mmHg.�
-intraop joanne 40s - started on Dobutamine - resolved
- Acute on chronic diastolic congestive heart failure with respiratory failure after induction from anesthesia
- EF 55-60%
- Hypertension
- History of smoking, former
- History of CVA/TIA with word finding difficulty
- Hyperlipidemia
- Paroxysmal atrial fibrillation of recnet onset- on Eliquis preop
- Diverticulosis
- Hemorrhoids
- Class 1 obesity (BMI 32)
- Degenerative disc disease
- Multiple orthopedic surgeries
- Gout
- Acute postop blood loss anemia - no active bleed, no transfusion
- Acute postop pulmonary insufficiency with hypoxia /atelectasis
- Acute postop hypovolemia with subsequent hypervolemia
- Acute postop abnormal ECG, possible pericarditis
- Acute postop hyponatremia- fluid restriction
Discussed patient care with: Nursing and Care Team
Subjective
-
Date of Service: June 02, 2023
Objective Data
-
PT 18.4 Sec (11.4-14.6) H 05/30/23 12:44
INR 1.52 05/30/23 12:44
APTT 25.1 Sec (23.4-35.0) 05/30/23 12:44
Vital Signs
Vital Signs
Temp Pulse Resp BP Pulse Ox
98.9 F 88 16 134/77 94
06/01/23 22:45 06/01/23 22:46 06/01/23 22:45 06/01/23 22:46 06/01/23 22:45
CT Intake/Output/Weight
06/01/23 06/01/23 06/02/23
06:59 18:59 06:59
Intake Total 100 / 880.8 830 / 1310 480 / 1310
Output Total 645 / 2765 2860 / 3360 500 / 3360
Balance -545 / -1884.2 -2029 / -2049 -
SaO2: 94
Physical Exam
-
General: Awake and AOx3
Cardiovascular: Regular rate & rhythm, No Murmurs and No Rub
Respiratory: Clear and Decreased Breath Sounds
Sternum: Stable
Incision: Clean, Dry and Intact
Extremities: No Edema (2+DP b/l)
Data Reviewed
-
Lab Results: Results Reviewed
Medications: Active Meds Reviewed
Chest X-Ray: Report Reviewed and Image Reviewed
ECG: Report Reviewed and Image Reviewed
[2023-06-02] MEDS: KCL 40 MEQ PO (05:34)
[2023-06-02] MEDS: TYLENOL 1000 MG PO ×2 (05:35→23:08)
--- NOTE | 2023-06-02 06:30 | PTCARENOTE ---
Patient's Potassium level this AM 3.6. 40 mEq KCL PO given. No further changes from previous assessment.
--- NOTE | 2023-06-02 08:46 | PTCARENOTE ---
assumed care of pt from previous shift RN, sinus rhythm on tele, VSS, + peripheral pulses, trace edema to bilateral lower extremities. Lungs diminished, POX97% on 2L NC. +BS, tolerating PO intake, voids spontaneously. PIV flushes easily. plan of
care reviewed w the pt and questions encouraged.
[2023-06-02] MEDS: PACERONE 200 MG PO ×3 (09:55→23:08)
[2023-06-02] MEDS: DIAMOX 250 MG PO (09:55)
[2023-06-02] MEDS: LOPRESSOR 25 MG PO ×2 (09:55→11:49)
[2023-06-02] MEDS: LASIX 40 MG IV (09:55)
[2023-06-02] MEDS: SENOKOT-S 1 TABLET PO ×2 (09:55→20:01)
[2023-06-02] MEDS: NEURONTIN 300 MG PO ×3 (09:55→23:07)
[2023-06-02] MEDS: PROTONIX 40 MG PO (09:55)
[2023-06-02] MEDS: MAGNESIUM OXIDE 500 MG PO ×2 (09:55→20:01)
[2023-06-02] MEDS: LOW STRENGTH ASPIRIN 81 MG PO (09:55)
[2023-06-02] MEDS: BACTROBAN 2% OINTMENT 1 APPLIC NASAL ×2 (09:56→20:00)
[2023-06-02] MEDS: LIDOCAINE 4% PATCH 1 PATCH TOPICAL (09:56)
[2023-06-02] MEDS: NSS IV (09:56)
--- NOTE | 2023-06-02 11:20 | W.PN.CD ---
Addendum entered and electronically signed by Nicolás Gonzalez MD 06/02/23 12:20:
67 yo female with PMH of MR, paroxysmal A fib, CVA admitted following MV repair 05/29. Sitting in chair without complaint. Exam with RRR, no murmurs, no edema. Tele: NSR, brief SVT.
Continue metoprolol.
Resume eliquis when safe post op.
Original Note:
Today's Communication / Plan
-
-encourage IS/ambulation
-resume OAC when safe post-op from CT surgery standpoint
-monitor telemetry, volume, BP's
Impression / Plan
-
Impression/Plan: 67 y/o female with HTN, PAF on apixaban, history of CVA and symptomatic myxomatous mitral valve regurgitation admitted for elective mitral valve repair.
Mitral valve regurgitation
-S/P Radical mitral valve repair (#30 Physioflex Annuloplasty Band, SN [id number], 2 pairs of GoreTex chords to A2 and P2, triangular resection of P2 with imbrication of part of P2 onto P1) 05/30/23, Dr. Mcfarland
-required some IV diuretic post-op
PAF:
-stable in SR
-CHADS2-Vasc = 5 (HTN, Age x1, CVA x2, HF,Female).
-S/P LAAL (#40 Atriclip) and modified left atrial MAZE.
-Resume anticoagulation when stable post op.
Post-op anemia:
-stable
Hypertension:
-seems to be stable post-op
-monitor
Hx of CVA:
-stable without any concerning symptoms
-on ASA, statin
-resume OAC when safe post-op per CT surgery
Subjective/Interval History:
She feels great. Pain improved. No SOB. OOB to chair reading.
DATA:
Intraoperative JASKARAN, 05/30/2023:
CONCLUSIONS
�Severe MR, prolapsed P1 P2 juncture with flail segment.� Dilated annulus.� No
�significant MAC.
�No thrombus or mass seen in the left atrial appendage.
�Severe left atrial enlargement.
�Normal left ventricular size and systolic function.
�The aorta has atheroma less than 5 mm and minimal calcifications.
�Mild TR.� Mild PI.
�Normal right ventricular size and function.
POST OPERATIVE FINDINGS
�Status post mitral valve repair with 30 mm annuloplasty ring, and neocords.�
�The ring is well-seated, no perivalvular leak, no residual mitral
�regurgitation, no mitral stenosis, leaflets are functioning well, mean gradient
�is 4 mmHg.
�Status post left atrial appendage exclusion, no flow seen through the left
�atrial appendage remnant.
�Normal left ventricular size and systolic function, no regional wall motion
�abnormalities, EF 55 to 60%.
�Normal right ventricular size and function.
�Mild TR.� Mild PI.� No aortic valve abnormalities.
Cardiac Catheterization, 04/17/2023:
LEFT VENTRICULOGRAPHY: Ventricular wall motion is normal.� An ejection fraction could not be calculated due to ventricular ectopy.� There is significant mitral regurgitation; however, the degree of mitral regurgitation cannot be quantitated due to
the ventricular ectopy.� The left atrium appears significantly enlarged.
CORONARY ANGIOGRAPHY
Dominance: Right
Left Main: Normal
LAD: Normal
Circumflex: Normal
RCA: Trivial luminal irregularities
JASKARAN, 04/17/2023:
CONCLUSIONS
�Normal left ventricular systolic function. Left ventricular ejection fraction
�is 55-60%.
�
�Flail leaflet P2 with severe mitral regurgitation.
�
�No significant change since the prior study of Nov 2021.
Physical Exam
Vital Signs/Labs
Vital Signs
Temp Pulse Resp BP Pulse Ox
98.3 F 94 16 141/84 97
06/02/23 07:42 06/02/23 08:00 06/02/23 07:42 06/02/23 07:42 06/02/23 10:38
06/01/23 06/02/23 06/03/23
06:59 06:59 06:59
Actual Weight 95.8 kg 94.3 kg
06/02/23 04:28
06/02/23 04:28
PT 18.4 Sec (11.4-14.6) H 05/30/23 12:44
INR 1.52 05/30/23 12:44
APTT 25.1 Sec (23.4-35.0) 05/30/23 12:44
Magnesium 2.3 mg/dl (1.6-2.3) 06/02/23 04:28
Physical Exam
Constitutional: No acute distress
EENT: Anicteric
Cardiovascular: Rhythm & rate is regular
Respiratory: Respiratory effort normal and Lungs clear to auscul.
Neuro/Psych: AO x 3
Other: Skin (right side dressing CDI)
Data Reviewed
-
Date of Service: June 02, 2023
EKG: Other (tele SR)
Labs: Labs Reviewed by me
[2023-06-02] MEDS: KLOR-CON 20 MEQ PO (11:49)
--- NOTE | 2023-06-02 12:15 | PTCARENOTE ---
Pt worked w PT/OT, tolerated well, VSS, sinus rhythm maintained on tele.
[2023-06-02] MEDS: TYLENOL PO (16:11)
--- NOTE | 2023-06-02 16:15 | PTCARENOTE ---
VSS, sinus rhythm maintained on tele, pt without complaint.
[2023-06-02] MEDS: LOPRESSOR 50 MG PO (20:00)
[2023-06-02] MEDS: FLEXERIL 5 MG PO (20:01)
--- NOTE | 2023-06-02 20:30 | PTCARENOTE ---
Patient received OOB in chair. Patient A+A+Ox3. No neurological deficits noted. No c/o headache, dizziness or lightheadedness. Room air. SaO2 91%. No c/o SOB. Chest tube sites open to air. Sinus Rhythm. Heart rate 90's. Blood pressure
122/75 (91). Patient with no c/o chest pain, pressure or discomfort. V-Wires insulated. Normoactive bowel sounds. No c/o nausea. No vomiting. Patient ambulated to bathroom using rolling walker - Minimal assistance - Steady gait. Voiding
without difficulty. Patient brushed teeth. Patient to bed. Right axillary, right anterior and right lateral surgical puncture sites/incisions with surgical adhesive/open to air. Patient with no c/o back or flank pain. Assessment as documented.
[2023-06-02] MEDS: CRESTOR 40 MG PO (23:07)
[2023-06-02] MEDS: LEXAPRO 20 MG PO (23:08)
--- NOTE | 2023-06-02 23:15 | PTCARENOTE ---
Patient sleeping without difficulty. Arouses easily. Patient A+A+Ox3. No neurological deficits noted. O2 2L via NC at HS. SaO2 95%. No c/o pain or discomfort. Patient back to sleep. Assessment as documented.
[2023-06-03 03:30] VITALS: BP 105/68
[2023-06-03 03:33] VITALS: BP 105/68
--- NOTE | 2023-06-03 04:00 | PTCARENOTE ---
Patient ambulating to bathroom by self. Using rolling walker. Steady gait. Voiding without difficulty. Patient A+A+Ox3. No neurological deficits noted. AM lab work collected and sent. Patient given CHG bath and linens changed. Patient back
to bed. Assessment/Interventions as documented.
[2023-06-03 04:20] LABS: Hematocrit 32.9 % (37.0-47.0); Hemoglobin 10.6 g/dL (12.0-16.0); Mean Corp Hgb Conc. 32.2 g/dL (33.0-37.0); Mean Corpuscular Hgb 29.4 pg (27.0-31.0); Mean Corpuscular Volume 91.1 fL (81.0-99.0); Platelet Count 213 10^3/uL (130-400); Red Blood Cell Count 3.61 10^6/uL (4.20-5.40); Red Cell Dist. Width 13.5 % (11.5-14.5); White Blood Cell Count 9.6 10^3/uL (4.8-10.8)
[2023-06-03 05:03] LABS: Blood Urea Nitrogen 17 mg/dl (7-17); Calcium 8.9 mg/dl (8.4-10.2); Carbon Dioxide 25 mmol/L (22-30); Chloride 103 mmol/L (98-107); Estimated Creatinine Clearance 89 ml/min; Glucose 106 mg/dl (70-99); Magnesium 2.6 mg/dl (1.6-2.3); Potassium 4.2 mmol/L (3.5-5.1); Sodium 134 mmol/L (135-145); eGFR > 60.00
[2023-06-03 06:00] VITALS: BMI 31.7
--- NOTE | 2023-06-03 06:16 | W.PN.CT ---
Today's Communication / Plan
-
-pod#4
-TTE, possibly today
-Fatigued but reports increased mobility yesterday
-with Bumex and Diamox UOP 1000/2600
-follow Na- 133->134
-current meds (ASA, Amio, Crestor, Bumex, Lopressor)
-encourage IS /acapella, OOB, ambulate
-DC planning, possibly today if TTE complete
Assessment / Plan
-
Impression:
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
Mcfarland on 05/30/23, pod #4
-after induction of anesthesia, pt developed flash pulmonary edema with significant elevated pulmonary hypertension in the 60s and poor oxygen saturation.� She was able to recover
-Intraop JASKARAN: postop EF was the same at 55 to 60%.� There were no new regional wma.� Her left atrial appendage was verified to be free of thrombus or debris preoperatively.� It� was found to
be totally occlusive and obliterated with a 40 mm clip following surgery.�There was no residual mitral valve insufficiency, no RICARDO of mitral leaflets and a mean gradient across the valve of 4
mmHg.�
-intraop joanne 40s - started on Dobutamine - resolved
- Acute on chronic diastolic congestive heart failure with respiratory failure after induction from anesthesia
- EF 55-60%
- Hypertension
- History of smoking, former
- History of CVA/TIA with word finding difficulty
- Hyperlipidemia
- Paroxysmal atrial fibrillation of recnet onset- on Eliquis preop
- Diverticulosis
- Hemorrhoids
- Class 1 obesity (BMI 32)
- Degenerative disc disease
- Multiple orthopedic surgeries
- Gout
- Acute postop blood loss anemia - no active bleed, no transfusion
- Acute postop pulmonary insufficiency with hypoxia /atelectasis
- Acute postop hypovolemia with subsequent hypervolemia
- Acute postop abnormal ECG, possible pericarditis
- Acute postop hyponatremia- fluid restriction
Subjective
-
Date of Service: June 03, 2023
No overnight events
Objective Data
-
Lab Results
06/03/23 03:54
06/03/23 03:54
PT 18.4 Sec (11.4-14.6) H 05/30/23 12:44
INR 1.52 05/30/23 12:44
APTT 25.1 Sec (23.4-35.0) 05/30/23 12:44
Vital Signs
Vital Signs
Temp Pulse Resp BP Pulse Ox
98.0 F 74 16 105/68 96
06/03/23 03:30 06/03/23 06:00 06/03/23 03:30 06/03/23 03:33 06/03/23 03:30
CT Intake/Output/Weight
06/02/23 06/02/23 06/03/23
06:59 18:59 06:59
Intake Total 480 / 1310 300 / 780 480 / 780
Output Total 800 / 3660 1600 / 2600 1000 / 2600
Balance -320 / -2350 -1300 / -1820 -520 / -1820
SaO2: 96
Physical Exam
-
General: Awake, Oriented and AOx3
Cardiovascular: Regular rate & rhythm, No Murmurs and No Rub
Respiratory: Clear and Equal
Sternum: Stable
Incision: Clean, Dry and Intact
Extremities: Edema +1
Data Reviewed
-
Lab Results: Results Reviewed
Medications: Active Meds Reviewed
Chest X-Ray: Report Reviewed
ECG: Report Reviewed
[2023-06-03] MEDS: TYLENOL PO ×2 (06:45→15:26)
[2023-06-03 08:14] VITALS: BP 121/76
[2023-06-03] MEDS: LIDOCAINE 4% PATCH 1 PATCH TOPICAL (08:19)
[2023-06-03] MEDS: PACERONE 200 MG PO ×2 (08:19→16:29)
[2023-06-03] MEDS: TOPROL XL 100 MG PO (08:20)
[2023-06-03] MEDS: KLOR-CON 20 MEQ PO (08:20)
[2023-06-03] MEDS: LASIX 40 MG PO (08:20)
[2023-06-03] MEDS: PROTONIX 40 MG PO (08:20)
[2023-06-03] MEDS: NSS IV (08:20)
[2023-06-03] MEDS: NEURONTIN 300 MG PO (08:20)
[2023-06-03] MEDS: MAGNESIUM OXIDE 500 MG PO (08:20)
[2023-06-03] MEDS: SENOKOT-S 1 TABLET PO (08:20)
[2023-06-03] MEDS: ELIQUIS 5 MG PO (08:20)
[2023-06-03] MEDS: BACTROBAN 2% OINTMENT 1 APPLIC NASAL (08:20)
--- NOTE | 2023-06-03 08:22 | W.PN.CD ---
Today's Communication / Plan
-
eliquis has been resumed
TTE today, and discharge if stable
Impression / Plan
-
Impression/Plan: 67 y/o female with HTN, PAF on apixaban, history of CVA and symptomatic myxomatous mitral valve regurgitation admitted for elective mitral valve repair.
Mitral valve regurgitation
-S/P Radical mitral valve repair (#30 Physioflex Annuloplasty Band, SN [id number], 2 pairs of GoreTex chords to A2 and P2, triangular resection of P2 with imbrication of part of P2 onto P1) 05/30/23, Dr. Mcfarland
-stable
-plan for TTE today
Parox AFib:
-stable in SR
-CHADS2-Vasc = 5 (HTN, Age x1, CVA x2, HF, Female).
-S/P LAAL (#40 Atriclip) and modified left atrial MAZE.
-eliquis has been resumed
Post-op anemia:
-stable
Hypertension:
-seems to be stable post-op
-monitor
Hx of CVA:
-stable without any concerning symptoms
-on ASA, statin
-resume OAC when safe post-op per CT surgery
Subjective/Interval History:
No cardiac complaints.
DATA:
Intraoperative JASKARAN, 05/30/2023:
CONCLUSIONS
�Severe MR, prolapsed P1 P2 juncture with flail segment.� Dilated annulus.� No
�significant MAC.
�No thrombus or mass seen in the left atrial appendage.
�Severe left atrial enlargement.
�Normal left ventricular size and systolic function.
�The aorta has atheroma less than 5 mm and minimal calcifications.
�Mild TR.� Mild PI.
�Normal right ventricular size and function.
POST OPERATIVE FINDINGS
�Status post mitral valve repair with 30 mm annuloplasty ring, and neocords.�
�The ring is well-seated, no perivalvular leak, no residual mitral
�regurgitation, no mitral stenosis, leaflets are functioning well, mean gradient
�is 4 mmHg.
�Status post left atrial appendage exclusion, no flow seen through the left
�atrial appendage remnant.
�Normal left ventricular size and systolic function, no regional wall motion
�abnormalities, EF 55 to 60%.
�Normal right ventricular size and function.
�Mild TR.� Mild PI.� No aortic valve abnormalities.
Cardiac Catheterization, 04/17/2023:
LEFT VENTRICULOGRAPHY: Ventricular wall motion is normal.� An ejection fraction could not be calculated due to ventricular ectopy.� There is significant mitral regurgitation; however, the degree of mitral regurgitation cannot be quantitated due to
the ventricular ectopy.� The left atrium appears significantly enlarged.
CORONARY ANGIOGRAPHY
Dominance: Right
Left Main: Normal
LAD: Normal
Circumflex: Normal
RCA: Trivial luminal irregularities
JASKARAN, 04/17/2023:
CONCLUSIONS
�Normal left ventricular systolic function. Left ventricular ejection fraction
�is 55-60%.
�
�Flail leaflet P2 with severe mitral regurgitation.
�
�No significant change since the prior study of Nov 2021.
Physical Exam
Vital Signs/Labs
Vital Signs
Temp Pulse Resp BP Pulse Ox
98.0 F 85 16 121/76 96
06/03/23 03:30 06/03/23 08:14 06/03/23 03:30 06/03/23 08:14 06/03/23 06:18
06/02/23 06/03/23 06/04/23
06:59 06:59 06:59
Actual Weight 94.3 kg 91.8 kg
06/03/23 03:54
06/03/23 03:54
PT 18.4 Sec (11.4-14.6) H 05/30/23 12:44
INR 1.52 05/30/23 12:44
APTT 25.1 Sec (23.4-35.0) 05/30/23 12:44
Magnesium 2.6 mg/dl (1.6-2.3) H 06/03/23 03:54
Physical Exam
Constitutional: No acute distress and Comfortable
EENT: Moist mucous membranes
Cardiovascular: Rhythm & rate is regular, Pedal edema is absent, JVD pressure is normal and Systolic murmur absent
Respiratory: Respiratory effort normal, Lungs clear to auscul. and Wheeze Absent
GI: Soft, Distention absent and Flat
Neuro/Psych: AO x 3
Data Reviewed
-
Date of Service: June 03, 2023
EKG: Other (Tele: NSR 80s)
Labs: Labs Reviewed by me
--- NOTE | 2023-06-03 08:31 | W.DCSUMMARY ---
Discharge Summary
Discharge Data
Date of Admission: 05/30/23
Date of Discharge: 06/03/23
Total time spent discharging patient (in min): 35
-
Pending Results: No
Hospital Course
Primary care physician:
Dr. More Wright
Outpatient athletic field custodian:
Dr. Noe Tran
Inpatient consultants:
CBC, Cardiopulmonary Specialist
Procedures:
1. Radical mitral valve repair (30 mm band annuloplasty, Geyser-Donovan cords placed to A2 and P2, triangular resection of P2 flail with imbrication of part of P2 onto P1)
2. Modified left atrial maze using cryo
3. Left atrial appendage exclusion with a 40 mm clip
Primary Diagnosis:
1. 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
Secondary Diagnoses:
1.� Acute on chronic congestive heart failure with respiratory failure after induction from anesthesia
2.� Hypertension
3.� History of smoking, former
4.� History of cerebrovascular disease/transient ischemic attack
5.� Hyperlipidemia
6.� Paroxysmal atrial fibrillation
7.� Diverticulosis
8.� Hemorrhoids
9.� Morbidly obese with a body mass index greater than 30
10.� Degenerative disc disease
11.� Multiple orthopedic surgeries
12.� Gout
13. Volume overload
HPI: 67-year-old female who recently developed worsening shortness of breath and fatigue and also new onset atrial fibrillation with TIA in the form of word finding difficulties.� She also describes frequent episodes of soft tissue edema requiring
Lasix.� She met stage D symptomatology and class I indication for surgical intervention of her mitral valve.� she presented on 05/29 for a elective MVRepair with Dr. Mcfarland.
Hospital course:
Patient was electively admitted on 05/29 for an elective mitral repair with Dr. Mcfarland. Upon induction in the OR she developed flash pulmonary edema with significant elevated pulmonary hypertension with poor oxygen saturation however she did recover
so they proceeded with the surgery. She returned to the CVICU on dobutamine, Levophed, Precedex, and insulin infusions. She had episodes of postoperative atrial fibrillation and was started on an amiodarone infusion. Dobutamine and Precedex were
weaned off. Cardiac index remained stable and patient was extubated by 1829. She was started on aspirin once tolerating p.o. On 05/30 postoperative day #1, central numbers remained stable and Shandaken-Latisha catheter and arterial line were removed.
Patient was diuresed with 40 mg of IV Lasix and redosed later that day with 2 mg of IV Bumex Doll catheter remained for accurate urine output measurement. Pleural chest tube was discontinued. After the interventions patient was eventually weaned
from 15 L nasal cannula to 6 L nasal cannula with saturations at 92% and Doll catheter was removed. On 05/31 postoperative #2, patient was found to be hyponatremic and fluid overloaded, therefore, she was dosed with Bumex 2 mg 3 times daily with
electrolyte repletion. Mediastinal chest tube was discontinued. She was weaned down to 2 L nasal cannula. On 06/01 postoperative day #3, patient was redosed with 40 mg of IV Lasix and 250 mg of Diamox with adequate response. Later that day she
was weaned down to room air. She had a short episode of SVT/PAF, therefore, her beta-jae dose was increased along with electrolyte repletion. On 06/02 postoperative day #4, 2 view chest x-ray was stable. Hyponatremia was near resolution and
was dosed with 40 of oral Lasix. Repeat echocardiogram showed a LVEF of 55%, no MR, and mean gradient of 3. Due to her history of atrial fibrillation patient was restarted on Eliquis and ASA was discontinued. However, if she continues to be free
of atrial fibrillation patient can eventually just be on aspirin. Patient was deemed stable for discharge and all her prescriptions were sent to her preferred pharmacy.
Home medication changes:
See below
Discharge Plan
-
Patient Disposition: Home (Routine Discharge)
Discharge Diagnosis/Procedures: Mitral valve repair
Condition: Good
Diet: Low Cholesterol and Restrict fluids to 64 oz
Activity: No strenuous activity
Driving Restrictions: Not until seen by your Dr
Bathing Restrictions: OK to Shower
Blood Work: BMP in one week
Other Services: Cardiac Rehab
Specialty Instructions: Weigh Daily- Call MD for wt gain/loss 3 lbs overnight/5 lbs in 1 week
Activity Restrictions/Additional Instructions:
ACTIVITY:
-No strenuous activity: no heavy lifting, pushing, pulling anything over 15 pounds for one month
-continue to use stairs as tolerated
DRIVING RESTRICTIONS:
-No driving for one month or until approved by your surgeon
WOUND CARE:
-Shower daily. Use soap & water.
-No lotions, creams or powders on incision area.
DIET:
-continue a low fat/low cholesterol diet.
-IF you are diabetic, continue carb controlled diet.
CARDIAC REHAB:
-Please make appointment to start in 5-6 weeks with your local hospital program. (See Cardiac Rehabilitation Discharge Booklet).
SPECIALTY INSTRUCTIONS:
-Weigh yourself daily. Call your physician for any weight gain/loss of 3 lbs overnight or 5 lbs in one week.
-REPORT any clicking noise or uneven appearance of your sternum to your surgeon immediately.
-If you smoke, you are instructed to quit. The [place] smoking hotline phone number is [phone]
Referrals:
CT Transitional Care Nurse [Outside] - in one to two days
(
The Cardiothoracic Transitional Care Nurse will call you to set up a visit in 1-2 days.)
[facility]. Cardiac Rehab [Outside] - 07/09/23 9:30 am
(Cardiac Rehab Orientation appointment is on 07/09/23 at 9:30 am
The Cardiac Rehab gym is located on the first floor of the [facility].)
Mima Carpenter NP [Specified Professional Personl] - 07/11/23 9:40 am
More Wright MD [Family Provider] - in four to six weeks (Please make an appointment in four to six weeks)
Allen Mcfarland MD [Active] - 07/04/23 1:30 pm
Additional Discharge Medication Instructions: Continue amiodarone 200 mg twice a day for 30 days and then 200 mg daily
Discontinue amlodipine and metoprolol tartrate 25 mg twice daily
Prescriptions:
New
cyclobenzaprine 10 mg Tablet
5 mg PO Q12H PRN (Reason: Muscle spasms) Qty: 20 0RF
amiodarone 200 mg Tablet
200 mg PO BID 30 Days Qty: 60 0RF
Rx Instructions:
Continue for 30 days after discharge
furosemide 40 mg Tablet
40 mg PO DAILY Qty: 5 0RF
acetaminophen 325 mg Tablet
650 mg PO Q6HPRN PRN (Reason: mild pain,headache,temp >101F ) Qty: 0 0RF
metoprolol succinate 100 mg Tablet Extended Release 24 Hr
100 mg PO DAILY Qty: 60 0RF
amiodarone 200 mg tablet
200 mg PO DAILY Qty: 30 0RF
Rx Instructions:
Start 30 days after discharge
potassium chloride 20 mEq tablet extended release
20 meq PO DAILY Qty: 7 0RF
Rx Instructions:
Only take while on lasix
lidocaine 4 % Adhesive Patch,Medicated
1 patch topical DAILY Qty: 0 0RF
Continued
escitalopram oxalate 20 MG tablet
20 mg PO HS
ezetimibe 10 mg Tablet
10 mg PO DAILY
rosuvastatin 40 mg Tablet
40 mg PO HS
cholecalciferol (vitamin D3) [Vitamin D3] 50 mcg (2,000 unit) Tablet
50 mcg PO DAILY
Eliquis 5 MG tablet
5 mg PO BID
Discontinued
amlodipine 10 MG tablet
10 mg PO DAILY 30 Days Qty: 30 0RF
metoprolol tartrate 25 MG tablet
25 mg PO BID
Discharge Orders:
Discharge Patient (As Directed); Ordered 06/03/23
Ordered By: Alea Lira
Care Plan Goals
Care Plan Goals:
Problem: Readiness for enhanced knowledge related to diagnosis and treatment plan
Goal: Understand your diagnosis and treatment plan needs, including medications if applicable.
Instructions: Know your diagnosis, underlying causes and treatment plan options, including medications if applicable. Consult with your health care team to learn about your diagnosis and treatment plan, including medications if applicable.
[2023-06-03] MEDS: LOW STRENGTH ASPIRIN PO (09:11)
--- NOTE | 2023-06-03 09:36 | PTCARENOTE ---
assumed care of pt from previous shift RN, sinus rhythm on tele, VSS, + peripheral pulses, trace edema to bilateral lower extremities. Lungs diminished, pox 93% on RA. +BS, tolerating PO intake, voids spontaneously. PIV flushes easily. plan of care
reviewed w the pt and questions encouraged.
[2023-06-03 11:19] VITALS: BP 114/77
--- NOTE | 2023-06-03 11:19 | PTCARENOTE ---
bedside echo completed. 2 view CR completed.
[2023-06-03 11:25] VITALS: BP 114/77
[2023-06-03 12:42] VITALS: BP 111/80
--- NOTE | 2023-06-03 16:12 | PTCARENOTE ---
post op dressings removed, epicardial pacing wire cut, pt showered without incident. IV line removed. Discharge instructions, medication list and follow up appointments reviewed w the pt and questions encouraged.
[2023-06-03] MEDS: NEURONTIN PO (16:29)
--- NOTE | 2023-06-03 18:33 | PTCARENOTE ---
pt was discharged via wheelchair by this RN without incident.
== END 2023-06-03 18:33 | disposition home or self-care (01) | DRG 219 ==
LOC: IVU 05:03
PROVIDERS: Clinical Nurse Specialist Acute Care; Nurse Practitioner; Physician Assistant Medical; Physician Assistant Surgical; ADMITTING PHYSICIAN Thoracic Surgery (Cardiothoracic Vascular Surgery); CONSULT PHYSICIAN Internal Medicine Critical Care Medicine; FAMILY PHYSICIAN Family Medicine
PROC: 02UG0JZ Supplement Mitral Valve with Synthetic Substitute, Open Approach (ICD-10-PCS; 2023-05-30)
PROC: B24BZZ4 Ultrasonography of Heart with Aorta, Transesophageal (ICD-10-PCS; 2023-05-30)
PROC: 5A1221Z Performance of Cardiac Output, Continuous (ICD-10-PCS; 2023-05-30)
PROC: 02L70CK Occlusion of Left Atrial Appendage with Extraluminal Device, Open Approach (ICD-10-PCS; 2023-05-30)
DX: I34.0 Nonrheumatic mitral (valve) insufficiency (principal); I50.33 Acute on chronic diastolic (congestive) heart failure; J96.01 Acute respiratory failure with hypoxia; J95.2 Acute pulmonary insufficiency following nonthoracic surgery; I51.1 Rupture of chordae tendineae, not elsewhere classified; E87.1 Hypo-osmolality and hyponatremia; I11.0 Hypertensive heart disease with heart failure; E78.5 Hyperlipidemia, unspecified; I48.0 Paroxysmal atrial fibrillation; K57.90 Diverticulosis of intestine, part unspecified, without perforation or abscess without bleeding; K64.9 Unspecified hemorrhoids; E66.01 Morbid (severe) obesity due to excess calories; M10.9 Gout, unspecified; Z87.891 Personal history of nicotine dependence; Z86.73 Personal history of transient ischemic attack (TIA), and cerebral infarction without residual deficits; Z68.31 Body mass index [BMI] 31.0-31.9, adult; Z79.01 Long term (current) use of anticoagulants
CPT/HCPCS: 88305; 33259; 36415; 71045; 71046; 80048; 80053; 81003; 82248; 82330; 82565; 82805; 82947; 82962; 83036; 83735; 84132; 84302; 84520; 85014; 85018; 85025; 85027; 85049; 85610; 85730; 86850; 86900; 86901; 86920; 87070; 93005; 93306; 93312; 93320; 93325; 93880; 94002; 97116; 97162; 97166; 97530; 97535; P9045

== ENCOUNTER 2023-07-09 14:44 | Outpatient (RCR) | payer MEDICARE, OTHER, SELFPAY | END 2023-07-09 23:59 | disposition home or self-care (01) | LOC: CRHB 14:44 | PROVIDERS: ATTENDING PHYSICIAN Internal Medicine Cardiovascular Disease | DX: Z95.4 Presence of other heart-valve replacement (principal) | CPT/HCPCS: G0422 ==

== ENCOUNTER → 2023-07-10 13:34 | Outpatient (REF) | payer MEDICARE, OTHER, SELFPAY | LOC: RAD 13:34 | PROVIDERS: ATTENDING PHYSICIAN Thoracic Surgery (Cardiothoracic Vascular Surgery); FAMILY PHYSICIAN Family Medicine | DX: Z98.890 Other specified postprocedural states (principal); R06.02 Shortness of breath | CPT/HCPCS: 71046 ==

== ENCOUNTER → 2023-07-11 12:35 | Outpatient (REF) | payer MEDICARE, OTHER, SELFPAY ==
[2023-07-11 12:59] VITALS: BP 132/91; BP_SYST 98
[2023-07-11 13:26] VITALS: BP 105/74
== END ==
LOC: RADI 12:35
PROVIDERS: ATTENDING PHYSICIAN Thoracic Surgery (Cardiothoracic Vascular Surgery)
DX: J90 Pleural effusion, not elsewhere classified (principal); R06.02 Shortness of breath
CPT/HCPCS: 32555; 71045

== ENCOUNTER → 2023-07-16 09:47 | Outpatient (REF) | payer MEDICARE, OTHER, SELFPAY | LOC: CS CBC/DCA 09:47 | PROVIDERS: ATTENDING PHYSICIAN Nurse Practitioner; FAMILY PHYSICIAN Family Medicine | DX: I48.0 Paroxysmal atrial fibrillation (principal); Z98.890 Other specified postprocedural states; J90 Pleural effusion, not elsewhere classified; E78.00 Pure hypercholesterolemia, unspecified | CPT/HCPCS: 93308; 93321; 93325 ==

== ENCOUNTER 2023-07-27 14:46 | Outpatient (RCR) | payer MEDICARE, OTHER, SELFPAY | END 2023-07-27 23:59 | disposition home or self-care (01) | LOC: CRHB 14:46 | PROVIDERS: ATTENDING PHYSICIAN Internal Medicine Cardiovascular Disease | DX: I34.0 Nonrheumatic mitral (valve) insufficiency (principal); Z95.4 Presence of other heart-valve replacement | CPT/HCPCS: G0422; G0423 ==

== ENCOUNTER → 2023-07-31 11:29 | Outpatient (REF) | payer MEDICARE, OTHER, SELFPAY | LOC: RAD 11:29 | PROVIDERS: ATTENDING PHYSICIAN Nurse Practitioner; FAMILY PHYSICIAN Family Medicine | DX: I48.0 Paroxysmal atrial fibrillation (principal); Z95.2 Presence of prosthetic heart valve; J90 Pleural effusion, not elsewhere classified; I10 Essential (primary) hypertension | CPT/HCPCS: 71046 ==

== ENCOUNTER → 2023-08-07 09:59 | Outpatient (REF) | payer MEDICARE, OTHER, SELFPAY ==
[2023-08-07 10:21] VITALS: BP 107/86; BP_SYST 81
[2023-08-07 11:24] VITALS: BP 108/70; BP_SYST 82
[2023-08-07 13:37] LABS: Body Fluid Polymorphonuclear 5.7 %; Body Fluid WBC 911 /CUMM
[2023-08-07 13:38] LABS: Body Fluid Mononuclear 94.3 %
[2023-08-07 13:40] LABS: Body Fluid Second Tech EM
[2023-08-07 13:43] LABS: Body Fluid Protein 5.2 g/dl
== END ==
LOC: RADI 09:59
PROVIDERS: ATTENDING PHYSICIAN Nurse Practitioner; FAMILY PHYSICIAN Family Medicine
DX: J90 Pleural effusion, not elsewhere classified (principal)
CPT/HCPCS: 88305; 32555; 71045; 84157; 87015; 87070; 87205; 88112; 89051

== ENCOUNTER 2023-08-11 02:57 | Emergency (ER) | payer MEDICARE, OTHER, SELFPAY ==
[2023-08-11 02:58] VITALS: BMI 31.1
[2023-08-11 03:09] VITALS: BP 136/81
--- NOTE | 2023-08-11 03:29 | ED.GENMED ---
History of Present Illness
General
Chief Complaint: Chest Pain
Source: patient
Time Seen by Provider: 08/11/23 03:15
Travel History
Have you had any contact with someone who has COVID-19?: No
Do you have any symptoms of coronavirus? Fever > 100 degrees, chills, cough, shortness of breath, sore throat, loss of taste or smell, muscle aches, or headache?: No
History of Present Illness
History of Present Illness:
67-year-old female presents emergency department complaints of pain that started around 6 PM yesterday evening. It was not sudden onset or abrupt. She describes it as an intermittent 'stabbing' just above the incision on the right side of her
thorax where she had a mitral valve replacement in May. However, she also notes pain at the left mid chest area, worse with a deep breath. She says she is 'not really' dyspneic. She denies fever, chills, swelling, nausea, vomiting, abdominal
pain, hemoptysis, leg swelling, back pain, neck pain, headache, dizziness, or other complaints. Patient has had recurrent pleural effusions on the right side July 10 and July 30. The symptoms tonight are reminiscent of symptoms with the pleural
effusion in regards to the right-sided symptoms but the left-sided symptoms are new
Past History
Past History
ED Past Medical History: Arrthythmia (Atrial fibrillation), CVA, HTN, Hypercholesterolemia, Psychiatric (Anxiety/depression) and Other (Gout)
ED Past Surgical History: Orthopedic
Social History
Tobacco: Former smoker
Alcohol: Occasional
Drug: None
Personal: Single
Living: alone
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
Family History
Family History: Other (Noncontributory)
Phy Exam
Physical Exam
Physical Exam:
GENERAL: Alert , in no apparent distress
EYE: pupils equal and reactive
NECK: Supple, no significant adenopathy.
ENT: o/p clr, mmm.
CARDIAC: Regular rate and rhythm .
LUNGS: Clear breath sounds bilaterally, no acute respiratory distress, no wheezes/rales/rhonchi
ABDOMEN: Soft, without focal tenderness, no r/g, no cvat
NEUROLOGICAL: Alert and oriented, no focal neuro deficits
SKIN: Warm and dry, skin intact.
MUSCULOSKELETAL: No edema, well perfused.
PSYCH: Normal and appropriate interaction.
Scores
Heart Score for Chest Pain Patients
STEMI patient?: Not applicable
Course
Orders/Labs/Results
Orders:
Orders
08/11/23 03:17
Electrocardiogram (*1) Urgent
Reason for Study: Chest Pain
Cardiac Monitoring- Treatment ONCE
EKG- Treatment ONCE
IV Insert/Care/Rem.- Treatment PRN
O2 Therapy [RESP] Urgent
Titrate/Wean O2 to maintain O2 sat greater than (%): 90
Special Instructions: Maintain sats >/=90%
Pulse Ox/spot Check [RESP] Urgent
Quantity: 1
Special Instructions: ON ROOM AIR
08/11/23 03:25
Complete Blood Count/With Diff Urgent
Comprehensive Metabolic Panel Urgent
Troponin I Urgent
08/11/23 03:31
CR Chest - 2 Views Urgent
Comment:
Reason For Exam: cp, hx pl effusion
08/11/23 03:35
D-Dimer Stat
08/11/23 04:32
CT Chest Pe Study Urgent
Comment:
Reason For Exam: SOB, CP, HX R PL EFFUS
08/11/23 08:04
Colchicine 0.6 mg PO NOW STA
Abnormal Lab Results
08/11/23 08/11/23
03:25 03:35
WBC 11.1 H 10^3/uL
(4.8-10.8)
MCH 26.4 L pg
(27.0-31.0)
MCHC 32.4 L g/dL
(33.0-37.0)
RDW 15.3 H %
(11.5-14.5)
Absolute Neuts (auto) 7.9 H 10^3/uL
(1.4-6.5)
Absolute Monos (auto) 1.2 H 10^3/uL
(0.1-0.6)
Lymphocytes % 16.9 L %
(20.5-51.1)
Monocytes % 11.1 H %
(1.7-9.3)
D-Dimer 3.31 H ug/mlFEU
(0.00-0.50)
BUN 21 H mg/dl
(7-17)
Glucose 126 H mg/dl
(70-99)
08/11/23 03:25
08/11/23 03:25
Vital Signs
Initial and Last Documented VS:
Initial Vital Signs
Temp Pulse Resp BP Pulse Ox
98.4 F 96 20 136/81 97
08/11/23 03:09 08/11/23 03:09 08/11/23 03:09 08/11/23 03:09 08/11/23 03:09
Last Documented Vital Signs
Temp Pulse Resp BP Pulse Ox
98.4 F 78 15 112/72 93
08/11/23 03:09 08/11/23 06:15 08/11/23 06:00 08/11/23 06:00 08/11/23 06:15
*Critical Care Note
Total Time (30-74mins, 75-104mins- exclusive of procedures): Not Applicable
Update Note
Update Note:
Patient presents to the Emergency Department with
Number and Complexity of Problems Addressed at the Encounter
� Chronic conditions affecting care:
� Acute Exacerbation and/or Progression of Chronic Illness:
� Differential Diagnosis includes:
Amount and/or Complexity of Data to be Reviewed and Analyzed
� I performed an independent evaluation of and my interpretation is:
EKG: Read by me, normal sinus rhythm, slightly low voltage, nonspecific T wave flattening, no acute ischemia
CT:
Xrays:
Laboratory Studies: Generally unremarkable
Other:
� Review of other/old records reveals: Patient had mitral valve replacement May 2023 complicated by recurrent pleural effusions on the right side x 2
� Clinical information was obtained by an independent historian:
� Prescriptions/Medications Considered but not given:
� Further testing considered but not performed:
Risk of Complications and/or Morbidity or Mortality of Patient Management
� Social determinants of health affecting care:
� Discussion with other providers (PCP, Hospitalists, Consultants, etc):
� Escalation of care including admission/observation vs risk of discharge considered: Patient remains very stable here upon multiple reassessments. Case discussed with cardiology, Dr. Hood, aware of history, physical,
prior history, etc. Recommends patient be seen in their office this week for an echo cart gram to reassess the pericardial effusion which she will make arrangements for. Case discussed with interventional radiology, Dr. Cuong Forbes, who also reviewed
the CAT scan and recommends thoracentesis early this week, he will have his office call her to arrange for. Then, upon further communication, Dr. Hood recommends starting colchicine. I discussed with patient and wrote a prescription.
ED Attending Note
-
Portions of this chart may have been created with voice recognition software.� Occasional wrong word or��sound alike� substitutions may have occurred due to the inherent limitations of voice recognition software.
Discharge Plan
Departure
Patient Disposition: Home (Routine Discharge)
Date of Disposition: 08/11/23
Time of Disposition: 07:59
Patient with high blood pressure during this ER visit?: Yes
Condition: Good
Discharge Problem:
Pleural effusion, pericardial effusion
Instructions: Pleural effusion, Pericardial Effusion, Chest Pain CBC Follow Up, BLOOD PRESSURE
Prescriptions:
New
colchicine 0.6 mg capsule
0.6 mg PO BID Qty: 14 0RF
No Action
escitalopram oxalate 20 MG tablet
20 mg PO HS
ezetimibe 10 mg Tablet
10 mg PO DAILY
rosuvastatin 40 mg Tablet
40 mg PO HS
cholecalciferol (vitamin D3) [Vitamin D3] 50 mcg (2,000 unit) Tablet
50 mcg PO DAILY
Eliquis 5 MG tablet
5 mg PO BID
cyclobenzaprine 10 mg Tablet
5 mg PO Q12H PRN (Reason: Muscle spasms) Qty: 20 0RF
acetaminophen 325 mg Tablet
650 mg PO Q6HPRN PRN (Reason: mild pain,headache,temp >101F ) Qty: 0 0RF
metoprolol succinate 100 mg Tablet Extended Release 24 Hr
100 mg PO DAILY Qty: 60 0RF
potassium chloride 20 mEq tablet extended release
20 meq PO DAILY Qty: 7 0RF
Rx Instructions:
Only take while on lasix
lidocaine 4 % Adhesive Patch,Medicated
1 patch topical DAILY Qty: 0 0RF
furosemide 40 mg tablet
20 mg PO NOON
Referrals:
More Wright MD [Family Provider] -
Activity Restrictions/Additional Instructions:
PLEASE SEE THE INTERVENTIONAL RADIOLOGIST ([phone]) ON SUNDAY, DR DOUGLAS. YOU WILL ALSO RECEIVE A CALL FROMTHE CARDIOLOGY OFFICE TO BE SEEN ON SUNDAY WELL. IF YOU DEVELOP FEVER, INCREASING/NEW PAIN, TROUBLE BREATHING, OR OTHER WORRISOME
SIGNS, GO TO THE ER IMMEDIATELY!
Interventions
Interventions:
*Risk Screen - Suicide Last Done: 08/11/23 03:09
*General Assessment Last Done: 08/11/23 03:09
*Neglect/Abuse Screening Last Done: 08/11/23 03:09
ED- Fall Risk Assessment Last Done: 08/11/23 03:09
*ED COVID-19 Vaccine History Last Done: 08/11/23 03:09
*Nursing Disposition Last Done: 08/11/23 09:08
ED- Cardiac Assessment Last Done: 08/11/23 03:33
Discharge Date and Time
Discharge Date/Time: 08/11/23 09:09
Print Language: BENGALI
[2023-08-11 03:30] VITALS: BP 108/71
[2023-08-11 03:39] LABS: % Basophils 0.4 % (0-2); % Eosinophils 0.8 % (0-6); % Immature Granulocytes 0.3 % (0-0.5); % Lymphocytes 16.9 % (20.5-51.1); % Monocytes 11.1 % (1.7-9.3); % Neutrophils 70.5 % (42.2-75.2); Absolute Basophils 0.1 10^3/uL (0-0.2); Absolute Eosinophils 0.1 10^3/uL (0-0.7); Absolute Lymphocytes 1.9 10^3/uL (1.2-3.4); Absolute Monocytes 1.2 10^3/uL (0.1-0.6); Absolute Neutrophils 7.9 10^3/uL (1.4-6.5); Mean Corp Hgb Conc. 32.4 g/dL (33.0-37.0); Mean Corpuscular Hgb 26.4 pg (27.0-31.0); Mean Corpuscular Volume 81.3 fL (81.0-99.0); Mean Platelet Volume 9.5 fL (7.4-10.4); Nucleated Red Blood Cells % 0 %; Platelet Count 294 10^3/uL (130-400); Red Blood Cell Count 4.55 10^6/uL (4.20-5.40); Red Cell Dist. Width 15.3 % (11.5-14.5); White Blood Cell Count 11.1 10^3/uL (4.8-10.8)
[2023-08-11 03:54] LABS: ALT (SGPT) 20 U/L (0-35); AST (SGOT) 24 U/L (14-36); Albumin 4.1 g/dl (3.5-5.0); Alkaline Phosphatase 71 U/L (38-126); Blood Urea Nitrogen 21 mg/dl (7-17); Calcium 9.5 mg/dl (8.4-10.2); Carbon Dioxide 25 mmol/L (22-30); Chloride 104 mmol/L (98-107); Estimated Creatinine Clearance 68 ml/min; Glucose 126 mg/dl (70-99); Potassium 3.9 mmol/L (3.5-5.1); Sodium 139 mmol/L (135-145); Total Bilirubin 0.6 mg/dl (0.2-1.3); Total Protein 7.4 g/dl (6.3-8.2); eGFR > 60.00
[2023-08-11 04:04] LABS: Troponin I < 0.012 ng/ml
[2023-08-11 04:09] LABS: D-Dimer 3.31 ug/mlFEU (0.00-0.50)
[2023-08-11 04:15] VITALS: BP 105/77
[2023-08-11 05:14] VITALS: BP 104/69
[2023-08-11 06:00] VITALS: BP 112/72
[2023-08-11] MEDS: COLCHICINE 0.599999999999999978 MG PO (08:36)
== END 2023-08-11 09:09 | disposition home or self-care (01) ==
LOC: EMR 02:57
PROVIDERS: EMERGENCY PHYSICIAN Emergency Medicine; FAMILY PHYSICIAN Family Medicine
DX: J90 Pleural effusion, not elsewhere classified (principal); I31.39 Other pericardial effusion (noninflammatory); I10 Essential (primary) hypertension; Z87.891 Personal history of nicotine dependence
CPT/HCPCS: 99285; 71046; 71275; 80053; 84484; 85025; 85379; 93005; Q9967

== ENCOUNTER → 2023-08-13 13:33 | Outpatient (REF) | payer MEDICARE, OTHER, SELFPAY ==
[2023-08-13 14:15] VITALS: BP 118/79; BP_SYST 82
[2023-08-13 14:59] VITALS: BP 120/74
== END ==
LOC: RADI 13:33
PROVIDERS: ATTENDING PHYSICIAN Nurse Practitioner; FAMILY PHYSICIAN Family Medicine
DX: J90 Pleural effusion, not elsewhere classified (principal)
CPT/HCPCS: 76604

== ENCOUNTER → 2023-08-14 15:05 | Outpatient (REF) | payer MEDICARE, OTHER, SELFPAY | LOC: RCS 15:05 | PROVIDERS: ATTENDING PHYSICIAN Nurse Practitioner; FAMILY PHYSICIAN Family Medicine | DX: J90 Pleural effusion, not elsewhere classified (principal) | CPT/HCPCS: 93308 ==

== ENCOUNTER → 2023-08-22 11:33 | Outpatient (REF) | payer MEDICARE, OTHER, SELFPAY | LOC: RAD 11:33 | PROVIDERS: ATTENDING PHYSICIAN Internal Medicine Cardiovascular Disease; FAMILY PHYSICIAN Family Medicine | DX: J90 Pleural effusion, not elsewhere classified (principal) | CPT/HCPCS: 71046 ==

== ENCOUNTER → 2023-09-18 12:46 | Outpatient (REF) | payer MEDICARE, OTHER, SELFPAY | LOC: RSP 12:46 | PROVIDERS: ATTENDING PHYSICIAN Nurse Practitioner; FAMILY PHYSICIAN Family Medicine | DX: I48.0 Paroxysmal atrial fibrillation (principal); R06.09 Other forms of dyspnea; Z95.2 Presence of prosthetic heart valve | CPT/HCPCS: 94727; 94729; 88738; 94060 ==

== ENCOUNTER 2023-10-29 11:26 | Outpatient (RCR) | payer MEDICARE, OTHER, SELFPAY | END 2023-10-29 23:59 | disposition home or self-care (01) | LOC: CRHB 11:26 | PROVIDERS: ATTENDING PHYSICIAN Internal Medicine Cardiovascular Disease | DX: Z95.2 Presence of prosthetic heart valve (principal) | CPT/HCPCS: G0422; G0423 ==

== ENCOUNTER → 2023-12-14 10:20 | Outpatient (REF) | payer MEDICARE, OTHER, SELFPAY | LOC: RCS 10:20 | PROVIDERS: ATTENDING PHYSICIAN Thoracic Surgery (Cardiothoracic Vascular Surgery); FAMILY PHYSICIAN Family Medicine | DX: I34.0 Nonrheumatic mitral (valve) insufficiency (principal); Z98.890 Other specified postprocedural states | CPT/HCPCS: 93306 ==

== ENCOUNTER 2024-07-09 15:13 | Outpatient (RCR) | payer MEDICARE, OTHER, SELFPAY | END 2024-07-09 23:59 | disposition home or self-care (01) | LOC: RPT 15:13 | PROVIDERS: ATTENDING PHYSICIAN Student in an Organized Health Care Education/Training Program; FAMILY PHYSICIAN Internal Medicine | DX: M25.371 Other instability, right ankle (principal); M25.372 Other instability, left ankle; Z73.6 Limitation of activities due to disability; R26.2 Difficulty in walking, not elsewhere classified; M25.552 Pain in left hip; R26.89 Other abnormalities of gait and mobility; W17.89XD Other fall from one level to another, subsequent encounter | CPT/HCPCS: 97110; 97112; 97162 ==

== ENCOUNTER 2024-07-31 07:25 | Emergency (ER) | payer MEDICARE, OTHER, SELFPAY ==
[2024-07-31 07:32] VITALS: BP 140/83
[2024-07-31 07:35] VITALS: BMI 33.2
--- NOTE | 2024-07-31 07:46 | ED.GENMED ---
History of Present Illness
General
Chief Complaint: Back Pain
Source: patient
Time Seen by Provider: 07/31/24 07:30
History of Present Illness
History of Present Illness:
68-year-old female with past medical history of atrial fibrillation, valvular disease, hypertension, hyperlipidemia, previous CVA presenting to the emergency department for evaluation of left-sided lower back pain for the last 5 days, started when
she bent down to place a torres into a cabinet and feeling the sudden onset pain radiating down into her buttock and posterior thigh, pain worsens with any attempted movement and states feels as if she is unable to stand up straight. Patient has had
similar in the past and was told she had piriformis issues, states that symptoms usually resolve after a few days and she decided come to the ER today because she is on her fifth day of symptoms and it has not gotten any better. She denies any
fevers, bowel or urinary incontinence, saddle anesthesias, focal weakness or numbness, history of IV drug abuse. Of note, patient states she takes some Aleve and Flexeril over the last 2 days, I did caution the patient against the Aleve use given
that she is on Eliquis due to her history of atrial fibrillation and previous CVA.
Past History
Past History
ED Past Medical History: Arrthythmia (Atrial fibrillation), CVA, HTN, Hypercholesterolemia, Psychiatric (Anxiety/depression) and Other (Gout)
ED Past Surgical History: Orthopedic
Social History
Tobacco: Former smoker
Alcohol: Occasional
Drug: None
Personal: Single
Living: alone
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
Family History
Family History: Other (Noncontributory)
Review of Systems
Review of Systems
All Other Systems: ROS reviewed and negative except as documented in HPI and ROS
Phy Exam
Physical Exam
Physical Exam:
GENERAL: Alert , in no apparent distress
HEAD: NCAT
EYE: clear conjunctiva b/l
NECK: Supple
ENT: mmm.
CARDIAC: Regular rate and rhythm .
LUNGS: Clear breath sounds bilaterally, no acute respiratory distress, no wheezes/rales/rhonchi
ABDOMEN: Soft, without focal tenderness, no r/g, no cvat
BACK: Limited range of motion 2/2 pain, no focal tenderness, no midline bony tenderness, no rashes
NEUROLOGICAL: Alert and oriented, no focal neuro deficits. Patellar deep tendon reflexes intact and equal bilaterally, sensation grossly intact and equal to light touch bilateral lower extremities
SKIN: Warm and dry, skin intact.
MUSCULOSKELETAL: No edema, well perfused. EHL intact bilaterally
PSYCH: Normal and appropriate interaction.
Scores
Heart Failure Risk
Heart Failure Risk Score: Not Applicable
Heart Score for Chest Pain Patients
STEMI patient?: Not applicable
Withdrawal Assessment of Alcohol
Withdrawal Assessment Completed?: Not applicable
Course
Orders/Labs/Results
Orders:
Orders
07/31/24 07:44
Dexamethasone Sod Phosphate [Decadron] 10 mg IM NOW STA
Diazepam [Valium] 5 mg PO NOW STA
Lidocaine [Lidocaine 4% Patch] 1 patch TOPICAL NOW STA
Apply Lidocaine patch(s) to:: left lower back
CR Lumbar Spine Comp Min 4 Vw* Urgent
Comment:
Reason For Exam: left sided lower back pain
Vital Signs
Initial and Last Documented VS:
Initial Vital Signs
Temp Pulse Resp BP Pulse Ox
98.1 F 80 14 140/83 97
07/31/24 07:32 07/31/24 07:32 07/31/24 07:32 07/31/24 07:32 07/31/24 07:32
Last Documented Vital Signs
Temp Pulse Resp BP Pulse Ox
98.1 F 80 14 140/83 97
07/31/24 07:32 07/31/24 07:32 07/31/24 07:32 07/31/24 07:32 07/31/24 07:32
MDM/Problems Addressed
Differential Diagnosis Includes:
Lumbar strain, spinal stenosis, disc herniation/nerve impingement, patient does not have symptoms to suggest infectious etiology nor neurogenic claudication. Sacroiliitis, other muscle strain
MDM/Problems Addressed:
68-year-old female presenting to the ER for evaluation of left-sided lower back pain over the last 5 days, pain worse with movement, unable to stand up straight. Attempted medications at home with minimal relief. She does have history of similar
in the past which feels very similar to today's pain/discomfort. Overall I suspect a muscular etiology is the most likely diagnosis. I reviewed previous imaging which shows known degenerative changes to the lumbar spine a few years ago and I
suspect progression of this. Caution patient against NSAID use given she is already anticoagulated. Will treat here with dose of Valium, Decadron and topical Lidoderm. X-ray of the lumbar spine ordered. Anticipate discharge home with outpatient
follow-up as needed.
*Radiology
Radiology exam reviewed: preliminary read by ED provider (degenerative changes noted)
*Pulse Oximetry
Patient hypoxic: no
*Critical Care Note
Total Time (30-74mins, 75-104mins- exclusive of procedures): Not Applicable
Data Reviewed
Review of Other/Old Records Reveals: Records and Radiology Studies
Patient Management
Escalation/DeEscalation of care consider admission/obs:
X-ray of the lumbar spine shows degenerative changes, no fracture. Patient does feel improved with medicines provided here. Medrol Dosepak and Valium provided for home use. Encouraged close outpatient follow-up.
ED Attending Note
-
Portions of this chart may have been created with voice recognition software.� Occasional wrong word or��sound alike� substitutions may have occurred due to the inherent limitations of voice recognition software.
Discharge Plan
Departure
Patient Disposition: Home (Routine Discharge)
Date of Disposition: 07/31/24
Time of Disposition: 08:46
Patient with high blood pressure during this ER visit?: No
Discharge Problem:
Dorsalgia of lumbar region
Instructions: Low Back Pain (DC)
Prescriptions:
New
methylprednisolone [Medrol (Nikolas)] 4 mg tablets,dose pack
4 mg PO DIRECTED Qty: 21 0RF
diazepam [Valium] 5 mg tablet
5 mg PO BID PRN (Reason: muscle spasm) Qty: 8 0RF
No Action
escitalopram oxalate 20 MG tablet
20 mg PO HS
ezetimibe 10 mg Tablet
10 mg PO DAILY
rosuvastatin 40 mg Tablet
40 mg PO HS
cholecalciferol (vitamin D3) [Vitamin D3] 50 mcg (2,000 unit) Tablet
50 mcg PO DAILY
Eliquis 5 MG tablet
5 mg PO BID
cyclobenzaprine 10 mg Tablet
5 mg PO Q12H PRN (Reason: Muscle spasms) Qty: 20 0RF
acetaminophen 325 mg Tablet
650 mg PO Q6HPRN PRN (Reason: mild pain,headache,temp >101F ) Qty: 0 0RF
metoprolol succinate 100 mg Tablet Extended Release 24 Hr
100 mg PO DAILY Qty: 60 0RF
potassium chloride 20 mEq tablet extended release
20 meq PO DAILY Qty: 7 0RF
Rx Instructions:
Only take while on lasix
lidocaine 4 % Adhesive Patch,Medicated
1 patch topical DAILY Qty: 0 0RF
furosemide 40 mg tablet
20 mg PO NOON
colchicine 0.6 mg capsule
0.6 mg PO BID Qty: 14 0RF
Referrals:
More Wright MD [Family Provider] -
Tom Clayton MD [Active] - (Back Specialist)
Interventions
Interventions:
*Risk Screen - Suicide Last Done: 07/31/24 07:34
*General Assessment Last Done: 07/31/24 07:34
*Neglect/Abuse Screening Last Done: 07/31/24 07:34
*ED- Fall Risk Assessment Last Done: 07/31/24 07:36
*ED COVID-19 Vaccine History Last Done: 07/31/24 07:36
*Nursing Disposition Last Done: 07/31/24 09:05
ED-Musculoskeletal Assessment Last Done: 07/31/24 07:36
Discharge Date and Time
Discharge Date/Time: 07/31/24 09:06
Print Language: EMIRATI
[2024-07-31] MEDS: LIDOCAINE 4% PATCH 1 PATCH TOPICAL (07:49)
[2024-07-31] MEDS: VALIUM 5 MG PO (07:49)
[2024-07-31] MEDS: DECADRON 10 MG IM (07:50)
== END 2024-07-31 09:06 | disposition home or self-care (01) ==
LOC: EMR 07:25
PROVIDERS: EMERGENCY PHYSICIAN Emergency Medicine; FAMILY PHYSICIAN Family Medicine
DX: M54.50 Low back pain, unspecified (principal); I48.91 Unspecified atrial fibrillation; I10 Essential (primary) hypertension; E78.00 Pure hypercholesterolemia, unspecified; F32.A Depression, unspecified; M47.816 Spondylosis without myelopathy or radiculopathy, lumbar region; F41.9 Anxiety disorder, unspecified; M10.9 Gout, unspecified; Z86.73 Personal history of transient ischemic attack (TIA), and cerebral infarction without residual deficits; Z87.891 Personal history of nicotine dependence; Z79.01 Long term (current) use of anticoagulants
CPT/HCPCS: 99284; 96372; 72110

== ENCOUNTER 2024-08-08 10:18 | Outpatient (RCR) | payer MEDICARE, OTHER, SELFPAY | END 2024-08-08 23:59 | disposition home or self-care (01) | LOC: RPT 10:18 | PROVIDERS: ATTENDING PHYSICIAN Student in an Organized Health Care Education/Training Program; FAMILY PHYSICIAN Internal Medicine | DX: M25.371 Other instability, right ankle (principal); M25.372 Other instability, left ankle; Z73.6 Limitation of activities due to disability; R26.2 Difficulty in walking, not elsewhere classified; M25.552 Pain in left hip; R26.89 Other abnormalities of gait and mobility; W17.89XD Other fall from one level to another, subsequent encounter | CPT/HCPCS: 97110; 97112; 97140 ==

== ENCOUNTER 2024-09-03 11:08 | Outpatient (RCR) | payer MEDICARE, OTHER, SELFPAY | END 2024-09-03 23:59 | disposition home or self-care (01) | LOC: RPT 11:08 | PROVIDERS: ATTENDING PHYSICIAN Student in an Organized Health Care Education/Training Program; FAMILY PHYSICIAN Internal Medicine | DX: M25.371 Other instability, right ankle (principal); M25.372 Other instability, left ankle; Z73.6 Limitation of activities due to disability; R26.2 Difficulty in walking, not elsewhere classified; M25.552 Pain in left hip; R26.89 Other abnormalities of gait and mobility; W17.89XD Other fall from one level to another, subsequent encounter; M54.16 Radiculopathy, lumbar region | CPT/HCPCS: 97010; 97110; 97112; 97164 ==

== ENCOUNTER 2024-10-07 11:38 | Outpatient (RCR) | payer MEDICARE, OTHER, SELFPAY | END 2024-10-07 23:59 | disposition home or self-care (01) | LOC: RPT 11:38 | PROVIDERS: ATTENDING PHYSICIAN Student in an Organized Health Care Education/Training Program; FAMILY PHYSICIAN Internal Medicine | DX: M25.371 Other instability, right ankle (principal); M25.372 Other instability, left ankle; Z73.6 Limitation of activities due to disability; R26.2 Difficulty in walking, not elsewhere classified; M25.552 Pain in left hip; R26.89 Other abnormalities of gait and mobility; M54.16 Radiculopathy, lumbar region; W17.89XD Other fall from one level to another, subsequent encounter | CPT/HCPCS: 97010; 97110; 97112; 97140 ==

== ENCOUNTER → 2024-12-03 10:35 | Outpatient (REF) | payer MEDICARE, OTHER, SELFPAY | LOC: RAD 10:35 | PROVIDERS: ATTENDING PHYSICIAN Neurological Surgery | DX: M43.16 Spondylolisthesis, lumbar region (principal) | CPT/HCPCS: 72114 ==

== ENCOUNTER → 2024-12-11 15:38 | Outpatient (REF) | payer MEDICARE, OTHER, SELFPAY | LOC: RCS 15:38 | PROVIDERS: ATTENDING PHYSICIAN Thoracic Surgery (Cardiothoracic Vascular Surgery); FAMILY PHYSICIAN Family Medicine | DX: Z98.890 Other specified postprocedural states (principal) | CPT/HCPCS: 93306 ==

== ENCOUNTER 2024-12-30 07:20 | Outpatient (RCR) | payer MEDICARE, OTHER, SELFPAY | END 2024-12-30 23:59 | disposition home or self-care (01) | LOC: RPT 07:20 | PROVIDERS: ATTENDING PHYSICIAN Student in an Organized Health Care Education/Training Program; FAMILY PHYSICIAN Internal Medicine | DX: M25.371 Other instability, right ankle (principal); M25.372 Other instability, left ankle; Z73.6 Limitation of activities due to disability; R26.2 Difficulty in walking, not elsewhere classified; M25.552 Pain in left hip; R26.89 Other abnormalities of gait and mobility; M54.16 Radiculopathy, lumbar region; W17.89XD Other fall from one level to another, subsequent encounter | CPT/HCPCS: 97110 ==

== ENCOUNTER → 2025-01-15 14:40 | Outpatient (REF) | payer MEDICARE, OTHER, SELFPAY | LOC: RAD 14:40 | PROVIDERS: ATTENDING PHYSICIAN Neurological Surgery; FAMILY PHYSICIAN Family Medicine | DX: I73.9 Peripheral vascular disease, unspecified (principal) | CPT/HCPCS: 93922; 93925 ==

== ENCOUNTER → 2025-03-11 12:10 | Outpatient (REF) | payer MEDICARE, OTHER, SELFPAY ==
[2025-03-11 15:54] LABS: Hematocrit 33.6 % (37.0-47.0); Hemoglobin 10.5 g/dL (12.0-16.0); Mean Corp Hgb Conc. 31.3 g/dL (33.0-37.0); Mean Corpuscular Volume 89.6 fL (81.0-99.0); Nucleated Red Blood Cells % 0 %; Platelet Count 273 10^3/uL (130-400); Red Cell Dist. Width 13.7 % (11.5-14.5)
[2025-03-11 16:24] LABS: Blood Urea Nitrogen 10 mg/dl (7-17); Calcium 9.0 mg/dl (8.4-10.2); Carbon Dioxide 25 mmol/L (22-30); Chloride 104 mmol/L (98-107); Glucose 121 mg/dl (70-99); Potassium 4.3 mmol/L (3.5-5.1); Sodium 136 mmol/L (135-145); eGFR > 60.00
== END ==
LOC: OLAB 12:10
PROVIDERS: ATTENDING PHYSICIAN Family Medicine
DX: Z47.89 Encounter for other orthopedic aftercare (principal); K57.90 Diverticulosis of intestine, part unspecified, without perforation or abscess without bleeding
CPT/HCPCS: 36415; 80048; 85025